=== PATIENT | male | born 1950 ===

== ENCOUNTER 2017-08-21 14:49 | Emergency (ER) | payer OTHER ==
[2017-08-21 14:58] VITALS: TEMP 97.5; BMI 25.7
--- NOTE | 2017-08-21 15:58 | C.PDOC ---
History Of Present Illness Patient presents to ED c/o interemittent dizziness described as room spinning around him for approx 2 weeks. He states symptoms worsen with movement of his head, and he denies prior episodes of similar symptoms. He denies current dizziness, but does admit that his blood sugar has also been elevated. He states he has been compliant with his insulin regimen. Patient denies visual changes, facial droop, slurred speech, extremity weakness, sensory changes, chest pain, palpitations, SOB. Patient also denies ear pain, mastoid pain, ear discharge. Time Seen by Provider: 08/21/17 15:54 Chief Complaint (Nursing): Dizziness/Lightheaded History Per: Patient History/Exam Limitations: no limitations Onset/Duration Of Symptoms: Days (2 weeks) Current Symptoms Are (Timing): Gone Activity At Onset Of Symptoms: Change In Head Position Associated Symptoms Preceding Syncopal Episode: No Predromal Symptoms (Sudden Onset) Seizure Or Post-ictal Symptoms: None Past Medical History Reviewed: Historical Data, Nursing Documentation, Vital Signs Vital Signs: Last Vital Signs Temp 97.5 F L 08/21/17 14:58 Pulse 55 L 08/21/17 18:12 Resp 16 08/21/17 18:12 BP 158/69 H 08/21/17 18:12 Pulse Ox 100 08/21/17 18:31 - Medical History PMH: Arthritis (knee), CAD, Cardia Arrhythmia, CHF, Diabetes, HTN, Hypercholesterolemia, Kidney Stones, Chronic Kidney Disease (RENAL INSUFFICIENCY ) Surgical History: Pacemaker Family History: States: No Known Family Hx - Social History Hx Alcohol Use: No (ocassional) Hx Substance Use: No - Immunization History Hx Tetanus Toxoid Vaccination: No Hx Influenza Vaccination: No Hx Pneumococcal Vaccination: No Review Of Systems Except As Marked, All Systems Reviewed And Found Negative. Constitutional: Negative for: Fever, Chills Cardiovascular: Negative for: Chest Pain, Palpitations Respiratory: Negative for: Cough, Shortness of Breath Gastrointestinal: Negative for: Nausea, Vomiting, Abdominal Pain, Diarrhea Genitourinary: Negative for: Dysuria, Hematuria Neurological: Positive for: Dizziness. Negative for: Weakness, Numbness, Incoordination, Headache Physical Exam - Physical Exam Appears: Well, Non-toxic, No Acute Distress Skin: Normal Color, Warm, Dry Eye(s): bilateral: Normal Inspection, PERRL (no nystagmus ), EOMI Ear(s): Bilateral: Normal (no mastoid TTP), Other (cerumen B/L, no discharge) Oral Mucosa: Moist Cardiovascular: Rhythm Regular Respiratory: Normal Breath Sounds, No Rales, No Rhonchi, No Wheezing Gastrointestinal/Abdominal: Normal Exam, Bowel Sounds, Soft, No Tenderness Extremity: Normal ROM Extremity: Bilateral: Atraumatic, Normal Color And Temperature, Normal ROM Neurological/Psych: Oriented x3, Normal Speech, Normal Cognition, Normal Cranial Nerves, No Cerebellar Signs, Normal Motor, Normal Sensation ED Course And Treatment - Laboratory Results Result Diagrams: 08/21/17 16:19 08/21/17 18:02 O2 Sat by Pulse Oximetry: 100 (RA) Pulse Ox Interpretation: Normal - CT Scan/US CT HEAD Other Rad Studies (CT/US): Read By Radiologist, Radiology Report Reviewed CT/US Interpretation: Accession No. : [id number]. Patient Name / ID : MARY RIVERA / [id number]. Exam Date : 08/21/2017 17:45:50 ( Approved ). Study Comment : Sex / Age : M / [id number]. Creator : Xena Camejo MD. Dictator : Xena Camejo MD. Crime Prevention Worker : Certified Green Building Engineer : Xena Camejo MD. Approver2 : Report Date : 08/21/2017 18:03:07. My Comment : . PROCEDURE: CT HEAD WITHOUT CONTRAST. HISTORY: DIZZINESS. COMPARISON: None available. TECHNIQUE: Axial computed tomography images were obtained through the head/ brain without intravenous contrast. Radiation dose: Total exam DLP = 909.95 mGy-cm. This CT exam was performed using one or more of the following dose reduction techniques: Automated exposure control, adjustment of the mA and/or kV according to patient size, and/or use of iterative reconstruction technique. FINDINGS: HEMORRHAGE: No intracranial hemorrhage. BRAIN: No mass effect or edema. No atrophy or chronic microvascular ischemic changes. VENTRICLES: Unremarkable. No hydrocephalus. CALVARIUM: Unremarkable. PARANASAL SINUSES: Unremarkable as visualized. No significant inflammatory changes. MASTOID AIR CELLS: There is complete opacification of the left mastoid and left middle ear consistent with otomastoiditis. OTHER FINDINGS: None. IMPRESSION: No evidence of acute intracranial hemorrhage intracranial collection mass effect or midline shift. Opacification of the left mastoid and middle ear consistent with otomastoiditis. Progress Note: Blood work, CT head, UA, EKG ordered and reviewed. Patient given IV NS bolus. Disposition Counseled Patient/Family Regarding: Studies Performed, Diagnosis, Need For Followup, Rx Given - Disposition Referrals: Gilmer Yang MD [Staff Provider] - Disposition: HOME/ ROUTINE Disposition Time: 19:00 Condition: STABLE Additional Instructions: SEGUIMIENTO CON ENT SPECIALIST DENTRO DE 1 SEMANA USE MEDICAMENTOS SEGN SEA NECESARIO PARA EL MAREO REGRESE AL CLAUDIA DE EMERGENCIA SI LOS SNTOMAS EMPEORAN Prescriptions: Meclizine [Meclizine*] 25 mg PO Q6 #30 tab Instructions: Benign Paroxysmal Positional Vertigo (ED) Forms: [facility] (Georgian) Print Language: SLOVAK - POA Present On Arrival: None - Clinical Impression Clinical Impression: Peripheral vertigo, Hyperglycemia, Chronic renal insufficiency
[2017-08-21] MEDS ORDERED: Sodium Chloride 0.9% 1,000 ML IV ONE (16:04)
[2017-08-21 16:23] LABS: BASO # 0.1 K/uL (0.0-0.2); BASO % 0.9 % (0.0-2.0); EOS # 0.1 K/uL (0.0-0.7); EOS % 0.7 % (0.0-4.0); HEMATOCRIT 32.7 % (35.0-51.0); LYMPH # 2.5 K/uL (1.0-4.3); LYMPH % 20.6 % (20.0-40.0); MEAN CELL VOLUME 81.4 fL (80.0-94.0); MEAN CORPUSCULAR HEMOGLOBIN 26.6 pg (27.0-31.0); MEAN CORPUSCULAR HGB CONC 32.6 g/dL (33.0-37.0); MEAN PLATELET VOLUME 9.3 fL (7.2-11.7); MONO # 0.7 K/uL (0.0-0.8); MONO % 5.9 % (0.0-10.0); RED CELL DISTRIBUTION WIDTH 13.8 % (11.5-14.5); WHITE BLOOD COUNT 12.3 K/uL (4.8-10.8)
[2017-08-21 16:36] LABS: ALB/GLOB RATIO 1.1 (1.0-2.1); BILIRUBIN,TOTAL 0.7 mg/dL (0.2-1.3); CALCIUM 7.7 mg/dl (8.6-10.4); POTASSIUM 6.1 mmol/L (3.6-5.2); TOTAL PROTEIN 7.6 g/dL (6.3-8.3)
--- NOTE | 2017-08-21 18:04 | CT ---
PROCEDURE: CT HEAD WITHOUT CONTRAST. HISTORY: DIZZINESS COMPARISON: None available. TECHNIQUE: Axial computed tomography images were obtained through the head/brain without intravenous contrast. Radiation dose: Total exam DLP = 909.95 mGy-cm. This CT exam was performed using one or more of the following dose reduction techniques: Automated exposure control, adjustment of the mA and/or kV according to patient size, and/or use of iterative reconstruction technique. FINDINGS: HEMORRHAGE: No intracranial hemorrhage. BRAIN: No mass effect or edema. No atrophy or chronic microvascular ischemic changes. VENTRICLES: Unremarkable. No hydrocephalus. CALVARIUM: Unremarkable. PARANASAL SINUSES: Unremarkable as visualized. No significant inflammatory changes. MASTOID AIR CELLS: There is complete opacification of the left mastoid and left middle ear consistent with otomastoiditis. OTHER FINDINGS: None. IMPRESSION: No evidence of acute intracranial hemorrhage intracranial collection mass effect or midline shift. Opacification of the left mastoid and middle ear consistent with otomastoiditis.
[2017-08-21 18:27] LABS: CALCIUM 8.1 mg/dl (8.6-10.4); POTASSIUM 5.6 mmol/L (3.6-5.2)
[2017-08-21 19:01] VITALS: BP 159/71; PULSE 58; RESP 18; O2SAT 98
--- NOTE | 2017-08-24 09:03 | CARD ---
APPROVED REPORT EKG Measurement Heart [id number] <Conclusion> Sinus bradycardia Right bundle branch block Left anterior fascicular block Bifascicular block T wave abnormality, consider lateral ischemia Abnormal ECG
== END 2017-08-21 19:08 | disposition home or self-care (01) ==
LOC: C.ER 14:49
DX: H81.399 Other peripheral vertigo, unspecified ear (principal); E11.65 Type 2 diabetes mellitus with hyperglycemia; Z79.4 Long term (current) use of insulin; N18.9 Chronic kidney disease, unspecified
CPT/HCPCS: 36415; 70450; 80048; 80053; 85025; 93005; 96360; 99285; J7040

== ENCOUNTER 2017-10-24 11:28 | Inpatient (IN) | payer MEDICAID, OTHER ==
[2017-10-24 11:29] VITALS: BMI 25.7
[2017-10-24] MEDS ORDERED: Sodium Chloride 0.9% 500 ML IV ONE (12:28)
[2017-10-24 12:46] LABS: BASO % 0.4 % (0.0-2.0); EOS # 0.1 K/uL (0.0-0.7); EOS % 0.8 % (0.0-4.0); HEMOGLOBIN 10.4 g/dL (12.0-18.0); LYMPH # 2.1 K/uL (1.0-4.3); LYMPH % 22.3 % (20.0-40.0); MEAN CELL VOLUME 82.8 fL (80.0-94.0); MEAN CORPUSCULAR HEMOGLOBIN 27.7 pg (27.0-31.0); MEAN CORPUSCULAR HGB CONC 33.5 g/dL (33.0-37.0); MEAN PLATELET VOLUME 11.2 fL (7.2-11.7); MONO # 0.7 K/uL (0.0-0.8); MONO % 7.5 % (0.0-10.0); NEUT # 6.5 K/uL (1.8-7.0); RBC 3.74 Mil/uL (4.40-5.90); RED CELL DISTRIBUTION WIDTH 13.5 % (11.5-14.5); WHITE BLOOD COUNT 9.4 K/uL (4.8-10.8)
--- NOTE | 2017-10-24 12:50 | C.PDOC ---
History Of Present Illness 67 year old male, with PMHx of diabetes, presents to ED for evaluation of increased thirst, increased fluid intake, and decreased appetite. Notes that he is compliant with his insulin medication. Denies n/v/d, chest pain, or shortness of breath. Time Seen by Provider: 10/24/17 12:00 Chief Complaint (Nursing): Medical Clearance History Per: Patient History/Exam Limitations: no limitations Onset/Duration Of Symptoms: Gradual Current Symptoms Are (Timing): Still Present Severity: None Pain Scale Rating Of: 0 Recent travel outside of the [place]: No Additional History Per: Patient Past Medical History Reviewed: Historical Data, Nursing Documentation, Vital Signs Vital Signs: Last Vital Signs Temp 98.0 F 10/26/17 16:44 Pulse 76 10/26/17 16:44 Resp 20 10/26/17 16:44 BP 155/80 H 10/26/17 16:44 Pulse Ox 98 10/26/17 16:44 - Medical History PMH: Arthritis (knee), CAD, Cardia Arrhythmia, CHF, Diabetes, HTN, Hypercholesterolemia, Kidney Stones, Chronic Kidney Disease (RENAL INSUFFICIENCY ) Surgical History: Pacemaker Family History: States: Unknown Family Hx - Social History Hx Alcohol Use: No (ocassional) Hx Substance Use: No - Immunization History Hx Tetanus Toxoid Vaccination: No Hx Influenza Vaccination: No Hx Pneumococcal Vaccination: No Review Of Systems Except As Marked, All Systems Reviewed And Found Negative. Constitutional: Positive for: Other (polydipsia, polyphagia). Negative for: Fever, Chills Cardiovascular: Negative for: Chest Pain, Palpitations Respiratory: Negative for: Cough, Shortness of Breath Gastrointestinal: Negative for: Nausea, Vomiting, Abdominal Pain, Diarrhea Neurological: Negative for: Headache, Dizziness Physical Exam - Physical Exam Appears: Non-toxic, No Acute Distress Skin: Normal Color, Warm, Dry Head: Atraumatic, Normacephalic Eye(s): bilateral: Normal Inspection Oral Mucosa: Moist Neck: Supple Cardiovascular: Rhythm Regular, No Murmur Respiratory: Normal Breath Sounds, No Rales, No Rhonchi, No Wheezing Gastrointestinal/Abdominal: Soft, No Tenderness Extremity: Normal ROM, No Deformity Neurological/Psych: Oriented x3, Normal Speech ED Course And Treatment - Laboratory Results Result Diagrams: 10/26/17 06:25 10/26/17 06:23 ECG: Interpreted By Me, Viewed By Me ECG Rhythm: Sinus Rhythm ECG Interpretation: No Acute Changes Interpretation Of ECG: RBBB. Left anterior fascicular block. Non-specific T wave changes. Rate From EC (bpm) O2 Sat by Pulse Oximetry: 99 (RA) Pulse Ox Interpretation: Normal Critical Care Time - Critical Care Note Total Time (in mins): 45 Documented critical care: time excludes all time spent performing seperately billable procedures. Medical Decision Making Medical Decision Making: Plan: Blood work Urinalysis EKG CXR IV fluids Reassess Assessment: Hyperglycemia Pt will be admitted under hospitalist, Dr. Eileen Stewart's service, consult with ICU, Dr. Meeta Stewart. Disposition Discussed With DrVasu: Alec Stewart Counseled Patient/Family Regarding: Studies Performed, Diagnosis - Disposition Disposition: HOSPITALIZED Disposition Time: 14:18 Condition: FAIR - Clinical Impression Clinical Impression: Hyperosmolality due to uncontrolled type 1 diabetes mellitus - Scribe Statement The provider has reviewed the documentation as recorded by the Scribkin Stewart All medical record entries made by the Scribkin were at my direction and personally dictated by me. I have reviewed the chart and agree that the record accurately reflects my personal performance of the history, physical exam, medical decision making, and the department course for this patient. I have also personally directed, reviewed, and agree with the discharge instructions and disposition.
[2017-10-24 13:09] LABS: URINE BILIRUBIN NEGATIVE (NEGATIVE); URINE BLOOD 1+ (NEGATIVE); URINE CLARITY Clear (Clear); URINE COLOR Straw (YELLOW); URINE GLUCOSE (UA) 3+ mg/dL (Normal); URINE LEUKOCYTE ESTERASE NEG Leu/uL (Negative); URINE NITRATE NEGATIVE (NEGATIVE); URINE PROTEIN NEGATIVE (NEGATIVE); URINE UROBILINOGEN NORMAL mg/dL (0.2-1.0)
[2017-10-24 13:16] LABS: SQUAMOUS EPITHIAL < 1 /hpf (0-5)
[2017-10-24 13:31] LABS: GFR AFRICAN-AMERICAN 26; GFR NON-AFRICAN AMERICAN 21
[2017-10-24 13:34] LABS: AST/SGOT 9 U/L (17-59)
--- NOTE | 2017-10-24 13:42 | RAD ---
Chest x-ray single frontal view History: Chest. Comparison: 10/12/2016 Findings: Mild venous congestion. Right hilar prominence. Cardiomegaly. Tortuous aorta. Degenerative changes in the spine and shoulders. Impression: Mild venous congestion. Right hilar prominence. Cardiomegaly.
[2017-10-24 13:51] LABS: ALBUMIN 3.7 g/dL (3.5-5.0); ALT/SGPT 20 U/L (21-72); BLOOD UREA NITROGEN 53 mg/dL (9-20); CALCIUM 8.3 mg/dl (8.6-10.4); LIPASE 319 U/L (23-300)
[2017-10-24] MEDS ORDERED: Sodium Chloride 0.9% 1,000 ML IV ONE ×4 (14:00→15:42)
[2017-10-24] MEDS ORDERED: (Novolin R) Insulin Human Regular 100 units/ml vial IV STA (14:01)
[2017-10-24] MEDS ORDERED: Insulin Human Regular 100 UNIT in Sodium Chloride 0.9% 99 ML IV SCH ×2 (14:15→16:30)
[2017-10-24] MEDS ORDERED: (Novolin R) Insulin Human Regular 100 units/ml vial ONE ×2 (14:30→16:06)
--- NOTE | 2017-10-24 14:33 | CP.PCM.HP ---
<Chele Richard - Last Filed: 10/24/17 17:36> History of Present Illness - History of Present Illness History of Present Illness: H&P CC: Excessive thirst, decreased appetite HPI: Patient is a 66 year old male, with PMHx of DM, HTN, renal insufficiency, and arthritis, who presents to [facility] for excessive thirst, and decreased appetite. Patient reports for the last few days he has been without testing strips for his glucometer and he has not been checking his sugars. He states he has become excessively thirsty, urinating more frequently, and noticed a decreased appetite. He states he has becca these symptoms before when his sugars have been high and knew it was time to come to the ED. He states he is still taking his insulin (20 units of Novolin in AM and PM) despite being unable to check his sugars. He denies chest pain, palpitations, SOB, abdominal pain, N/V. FHx: Father - DM; Mom - DM & Heart disease SHx: Tobacco: 30yrs x 1/2 PPD = 15 pack years; Alcohol: 1-2 beers "occasionally " 2-3 x per week; denies narcotic drug use; works at [employer] in [place] PMHx: Diabetes (diagnosed in 1999: has not check BG in months due to glucometer being broken); HTN (10+ yrs; takes Zestril 5mg PO daily and Norvasc 5mg PO Daily ); Osteoarthritis PShx: Lipoma removal (back of arm) Allergies: denies Present on Admission - Present on Admission Any Indicators Present on Admission: No History of Uncontrolled Diabetes: Yes Review of Systems - Constitutional Constitutional: absent: Chills, Fever - EENT Eyes: absent: Blurred Vision, Change in Vision, Spots in Vision Nose/Mouth/Throat: absent: Nasal Discharge - Cardiovascular Cardiovascular: absent: Chest Pain, Dyspnea, Leg Ulcers - Respiratory Respiratory: absent: Cough, Dyspnea, Chest Congestion - Gastrointestinal Gastrointestinal: absent: Abdominal Pain, Nausea, Vomiting - Genitourinary Genitourinary: Urinary Frequency. absent: Difficulty Urinating, Dysuria - Musculoskeletal Musculoskeletal: absent: Back Pain, Numbness, Tingling - Integumentary Integumentary: Dry Skin. absent: Wounds - Neurological Neurological: absent: Tingling, Weakness - Psychiatric Psychiatric: absent: Anxiety, Depression - Endocrine Endocrine: Polyphagia, Polyuria. absent: Fatigue, Palpitations Past Patient History - Infectious Disease Hx of Infectious Diseases: None - Past Medical History & Family History Past Medical History?: Yes - Past Social History Smoking Status: Light Smoker < 10 Cigarettes Daily - CARDIAC Hx Cardia Arrhythmia: Yes Hx Congestive Heart Failure: Yes Hx Hypercholesterolemia: Yes Hx Hypertension: Yes Hx Pacemaker: Yes - PULMONARY Hx Respiratory Disorders: Yes (SOB) - NEUROLOGICAL Hx Neurological Disorder: No - HEENT Hx HEENT Problems: Yes Hx Cataracts: Yes - RENAL Hx Chronic Kidney Disease: Yes (RENAL INSUFFICIENCY) Hx Kidney Stones: Yes - ENDOCRINE/METABOLIC Hx Endocrine Disorders: Yes Hx Diabetes Mellitus Type 2: Yes - HEMATOLOGICAL/ONCOLOGICAL Hx Blood Disorders: Yes Hx Shingles: Yes - INTEGUMENTARY Hx Dermatological Problems: No - MUSCULOSKELETAL/RHEUMATOLOGICAL Hx Arthritis: Yes (knee) - GASTROINTESTINAL Hx Gastrointestinal Disorders: Yes Hx Gastroesophageal Reflux: Yes - GENITOURINARY/GYNECOLOGICAL Hx Genitourinary Disorders: No - PSYCHIATRIC Hx Substance Use: No - SURGICAL HISTORY Hx Surgeries: Yes Other/Comment: REMOVAL LIPOMAS BACK ARM LOCAL ONLY - ANESTHESIA Hx Anesthesia: Yes Hx Anesthesia Reactions: No Hx Malignant Hyperthermia: No Meds Allergies/Adverse Reactions: Allergies Allergy/AdvReac Type Severity Reaction Status Date / Time No Known Allergies Allergy Verified 10/24/17 11:39 Physical Exam - Constitutional Appears: Non-toxic, No Acute Distress - Head Exam Head Exam: ATRAUMATIC, NORMAL INSPECTION - Eye Exam Eye Exam: EOMI, Normal appearance Pupil Exam: PERRL - ENT Exam ENT Exam: Mucous Membranes Dry, Normal Exam - Respiratory Exam Respiratory Exam: Clear to Auscultation Bilateral, NORMAL BREATHING PATTERN - Cardiovascular Exam Cardiovascular Exam: REGULAR RHYTHM, +S1, +S2, Systolic Murmur - GI/Abdominal Exam GI & Abdominal Exam: Normal Bowel Sounds, Soft. absent: Tenderness - Extremities Exam Extremities exam: Positive for: normal inspection. Negative for: pedal edema - Back Exam Back exam: absent: CVA tenderness (L), CVA tenderness (R) - Neurological Exam Neurological exam: Alert, Oriented x3 - Psychiatric Exam Psychiatric exam: Normal Affect, Normal Mood - Skin Skin Exam: Dry, Normal Color, Warm Results - Vital Signs Recent Vital Signs: Last Vital Signs Temp 97.6 F 10/24/17 11:35 Pulse 95 H 10/24/17 11:35 Resp 18 01/27/18 11:35 BP 169/102 H 10/24/17 11:35 Pulse Ox 99 10/24/17 14:25 - Labs Result Diagrams: 10/24/17 12:43 10/24/17 12:43 Labs: Laboratory Results - last 24 hr 10/24/17 10/24/17 10/24/17 11:57 12:43 12:43 WBC 9.4 RBC 3.74 L Hgb 10.4 L Hct 31.0 L MCV 82.8 MCH 27.7 MCHC 33.5 RDW 13.5 Plt Count 152 MPV 11.2 Neut % (Auto) 69.0 Lymph % (Auto) 22.3 [place] % (Auto) 7.5 Eos % (Auto) 0.8 Baso % (Auto) 0.4 Neut # 6.5 Lymph # 2.1 [place] # 0.7 Eos # 0.1 Baso # 0.0 Sodium 110 L* Potassium 5.2 Chloride 77 L D Carbon Dioxide 20 L Anion Gap 17 BUN 53 H Creatinine 3.0 H Est GFR ( Amer) 26 Est GFR (Non-Af Amer) 21 POC Glucose (mg/dL) > 500 H* Random Glucose 1026 H* Calcium 8.3 L Total Bilirubin 0.8 AST 9 L D ALT 20 L Alkaline Phosphatase 167 H D Troponin I < 0.0120 Total Protein 7.3 Albumin 3.7 Globulin 3.6 Albumin/Globulin Ratio 1.0 Lipase 319 H Urine Color Urine Clarity Urine pH Ur Specific [place] Urine Protein Urine Glucose (UA) Urine Ketones Urine Blood Urine Nitrate Urine Bilirubin Urine Urobilinogen Ur Leukocyte Esterase Urine WBC (Auto) Urine RBC (Auto) Ur Squamous Epith Cells 10/24/17 13:01 WBC RBC Hgb Hct MCV MCH MCHC RDW Plt Count MPV Neut % (Auto) Lymph % (Auto) [place] % (Auto) Eos % (Auto) Baso % (Auto) Neut # Lymph # [place] # Eos # Baso # Sodium Potassium Chloride Carbon Dioxide Anion Gap BUN Creatinine Est GFR ( Amer) Est GFR (Non-Af Amer) POC Glucose (mg/dL) Random Glucose Calcium Total Bilirubin AST ALT Alkaline Phosphatase Troponin I Total Protein Albumin Globulin Albumin/Globulin Ratio Lipase Urine Color Straw Urine Clarity Clear Urine pH 6.0 Ur Specific [place] 1.014 Urine Protein Negative Urine Glucose (UA) 3+ H Urine Ketones Negative Urine Blood 1+ H Urine Nitrate Negative Urine Bilirubin Negative Urine Urobilinogen Normal Ur Leukocyte Esterase Neg Urine WBC (Auto) 2 Urine RBC (Auto) 4 H Ur Squamous Epith Cells < 1 Assessment & Plan - Assessment and Plan (Free Text) Plan: Hyperosmolar hyperglycemic non-ketotic syndrome Admit to regular, transfer to ICU Initial sugars> 1000 UA: no ketones, Anion Gap = 18 Trop negative x 1 Lipase 319 (mild elevation) UA: 3+ glucose, 1+ blood ICU consult, Dr. Stewart - will accept pt when bed available Insulin Drip Lantus 20 units STAT in ED Novolin R 8 units IV NS x 2 liters NS @ 150cc/hr f/u BNP, A1C, lipid panel, Urine Osm, Serum Osm, procalcitonin Hyponatremia Corrected sodium (admission) 124 Volume depletion NS x 2 liters NS @ 150cc/hr CKD Chronic (baseline Cr ~3.8) Admission Cr 3.0; GFR 26 NS x 2 liters NS @ 150cc/hr Will avoid nephrotoxic drugs HOLD home Zestril 5 mg PO Daily CHF (systolic) ECHO (09/2016): EF 28%, Tricuspid regurgitation, moderate pulm HTN Pt volume depleted, is being aggressively rehydrated, will monitor for overload HOLD home Zestril 5 mg PO Daily Hematuria UA (10/24/17): 1+ blood Monitor, will repeat UA later in course Prophylaxis SCDs Lovenox GI ppx not indicated at this time Chele Richard PGY-[address] Oconnor, and Dr. Stewart (ICU attending) <Wilber Oconnor H - Last Filed: 10/24/17 18:03> Results - Vital Signs Recent Vital Signs: Last Vital Signs Temp 97.6 F 10/24/17 16:53 Pulse 72 10/24/17 16:53 Resp 16 10/24/17 16:53 BP 146/79 10/24/17 16:53 Pulse Ox 100 10/24/17 16:53 - Labs Result Diagrams: 10/24/17 12:43 10/24/17 12:43 Labs: Laboratory Results - last 24 hr 10/24/17 10/24/17 10/24/17 11:57 12:43 12:43 WBC 9.4 RBC 3.74 L Hgb 10.4 L Hct 31.0 L MCV 82.8 MCH 27.7 MCHC 33.5 RDW 13.5 Plt Count 152 MPV 11.2 Neut % (Auto) 69.0 Lymph % (Auto) 22.3 [place] % (Auto) 7.5 Eos % (Auto) 0.8 Baso % (Auto) 0.4 Neut # 6.5 Lymph # 2.1 [place] # 0.7 Eos # 0.1 Baso # 0.0 Sodium 110 L* Potassium 5.2 Chloride 77 L D Carbon Dioxide 20 L Anion Gap 17 BUN 53 H Creatinine 3.0 H Est GFR ( Amer) 26 Est GFR (Non-Af Amer) 21 POC Glucose (mg/dL) > 500 H* Random Glucose 1026 H* Serum Osmolality Calcium 8.3 L Total Bilirubin 0.8 AST 9 L D ALT 20 L Alkaline Phosphatase 167 H D Troponin I < 0.0120 Total Protein 7.3 Albumin 3.7 Globulin 3.6 Albumin/Globulin Ratio 1.0 Lipase 319 H Urine Color Urine Clarity Urine pH Ur Specific [place] Urine Protein Urine Glucose (UA) Urine Ketones Urine Blood Urine Nitrate Urine Bilirubin Urine Urobilinogen Ur Leukocyte Esterase Urine WBC (Auto) Urine RBC (Auto) Ur Squamous Epith Cells Urine Osmolality Serum Ketones 10/24/17 10/24/17 10/24/17 13:01 15:37 15:37 WBC RBC Hgb Hct MCV MCH MCHC RDW Plt Count MPV Neut % (Auto) Lymph % (Auto) [place] % (Auto) Eos % (Auto) Baso % (Auto) Neut # Lymph # [place] # Eos # Baso # Sodium Potassium Chloride Carbon Dioxide Anion Gap BUN Creatinine Est GFR ( Amer) Est GFR (Non-Af Amer) POC Glucose (mg/dL) Random Glucose Serum Osmolality 312 H Calcium Total Bilirubin AST ALT Alkaline Phosphatase Troponin I Total Protein Albumin Globulin Albumin/Globulin Ratio Lipase Urine Color Straw Urine Clarity Clear Urine pH 6.0 Ur Specific [place] 1.014 Urine Protein Negative Urine Glucose (UA) 3+ H Urine Ketones Negative Urine Blood 1+ H Urine Nitrate Negative Urine Bilirubin Negative Urine Urobilinogen Normal Ur Leukocyte Esterase Neg Urine WBC (Auto) 2 Urine RBC (Auto) 4 H Ur Squamous Epith Cells < 1 Urine Osmolality Serum Ketones Negative 10/24/17 10/24/17 10/24/17 15:38 16:40 17:27 WBC RBC Hgb Hct MCV MCH MCHC RDW Plt Count MPV Neut % (Auto) Lymph % (Auto) [place] % (Auto) Eos % (Auto) Baso % (Auto) Neut # Lymph # [place] # Eos # Baso # Sodium Potassium Chloride Carbon Dioxide Anion Gap BUN Creatinine Est GFR ( Amer) Est GFR (Non-Af Amer) POC Glucose (mg/dL) > 500 H* 252 H Random Glucose Serum Osmolality Calcium Total Bilirubin AST ALT Alkaline Phosphatase Troponin I Total Protein Albumin Globulin Albumin/Globulin Ratio Lipase Urine Color Urine Clarity Urine pH Ur Specific [place] Urine Protein Urine Glucose (UA) Urine Ketones Urine Blood Urine Nitrate Urine Bilirubin Urine Urobilinogen Ur Leukocyte Esterase Urine WBC (Auto) Urine RBC (Auto) Ur Squamous Epith Cells Urine Osmolality 338 Serum Ketones Attending/Attestation - Attestation I have personally seen and examined this patient.: Yes I have fully participated in the care of the patient.: Yes I have reviewed all pertinent clinical information: Yes Notes (Text): 10/24/17 17:53 Medical attending: Patient was seen and examined by me with the bilingual medical assistant. Agree with the above note by the resident Family member present as well and patient was ok with this. The patient was not in any acute distress when we saw him. He was alert and orientated x 3. Answering questions appropriately. We had the help of a spinning machine tender computer service. As mentioned above the patient reported he has been taking his insulin however has ran out of test strips for some time now and therefore was not aware his sugars were thus high. He was not acidotic, serum bicarb was stable, no ketones in urine, no ketones in serum. The blood pressure and HR were also ok as well. The Na is low a reflection of the very high glucose, calculated correction makes it about 123-124 area. In the ER recived IVF bolus and 8 units of IV insulin. He was moved to ICU for further monitoring, hopefully he can come out soon. Wilber Oconnor
[2017-10-24] MEDS ORDERED: (Lantus) Insulin Glargine, Recombinant SC STA (14:35)
[2017-10-24] MEDS ORDERED: (Novolog) Insulin Aspart, Recombinant 100 u/ml 10 ml vial SC SCH (15:00)
[2017-10-24] MEDS ORDERED: (Lantus) Insulin Glargine, Recombinant SC ONE (15:05)
--- NOTE | 2017-10-24 15:11 | CP.PCM.CON ---
History of Present Illness - History of Present Illness History of Present Illness: 67 y/o male with pmx of DM, HTN with non-functional glucometer presents to [facility] with c/o increased thirst and increased urination, Patient denies any chest pain. Patient was noted to hae high blood sugar. Patient denies any chest pain, denies any abdominal pain, denies any blurry vision Past Patient History - Infectious Disease Hx of Infectious Diseases: None - Past Medical History & Family History Past Medical History?: Yes - Past Social History Smoking Status: Light Smoker < 10 Cigarettes Daily - CARDIAC Hx Cardia Arrhythmia: Yes Hx Congestive Heart Failure: Yes Hx Hypercholesterolemia: Yes Hx Hypertension: Yes Hx Pacemaker: Yes - PULMONARY Hx Respiratory Disorders: Yes (SOB) - NEUROLOGICAL Hx Neurological Disorder: No - HEENT Hx HEENT Problems: Yes Hx Cataracts: Yes - RENAL Hx Chronic Kidney Disease: Yes (RENAL INSUFFICIENCY) Hx Kidney Stones: Yes - ENDOCRINE/METABOLIC Hx Endocrine Disorders: Yes Hx Diabetes Mellitus Type 2: Yes - HEMATOLOGICAL/ONCOLOGICAL Hx Blood Disorders: Yes Hx Shingles: Yes - INTEGUMENTARY Hx Dermatological Problems: No - MUSCULOSKELETAL/RHEUMATOLOGICAL Hx Arthritis: Yes (knee) - GASTROINTESTINAL Hx Gastrointestinal Disorders: Yes Hx Gastroesophageal Reflux: Yes - GENITOURINARY/GYNECOLOGICAL Hx Genitourinary Disorders: No - PSYCHIATRIC Hx Substance Use: No - SURGICAL HISTORY Hx Surgeries: Yes Other/Comment: REMOVAL LIPOMAS BACK ARM LOCAL ONLY - ANESTHESIA Hx Anesthesia: Yes Hx Anesthesia Reactions: No Hx Malignant Hyperthermia: No Meds Allergies/Adverse Reactions: Allergies Allergy/AdvReac Type Severity Reaction Status Date / Time No Known Allergies Allergy Verified 10/24/17 11:39 - Medications Medications: Current Medications Sodium Chloride (Sodium Chloride 0.9%) 1,000 mls @ 150 mls/hr IV .Q6H40M TENZIN Sodium Chloride (Sodium Chloride 0.9%) 1,000 mls @ 1,000 mls/hr IV .Q1H ONE Stop: 10/24/17 15:58 Insulin Aspart (Novolog) 0 unit SC Q4H ETNZIN PRN Reason: Protocol Physical Exam - Constitutional Appears: Non-toxic - Head Exam Head Exam: ATRAUMATIC, NORMAL INSPECTION, NORMOCEPHALIC - Eye Exam Eye Exam: EOMI - ENT Exam ENT Exam: Mucous Membranes Dry - Respiratory Exam Respiratory Exam: Clear to Auscultation Bilateral, NORMAL BREATHING PATTERN - Cardiovascular Exam Cardiovascular Exam: REGULAR RHYTHM, +S1, +S2, +S4, Systolic Murmur - GI/Abdominal Exam GI & Abdominal Exam: Normal Bowel Sounds - Neurological Exam Neurological exam: CN II-XII Intact, Normal Gait, Oriented x3 Results - Vital Signs Recent Vital Signs: Last Vital Signs Temp 97.9 F 10/24/17 14:37 Pulse 76 10/24/17 14:37 Resp 20 10/24/17 14:37 BP 146/71 10/24/17 14:37 Pulse Ox 100 10/24/17 14:37 - Labs Result Diagrams: 10/24/17 12:43 10/24/17 12:43 Labs: Laboratory Results - last 24 hr 10/24/17 10/24/17 10/24/17 11:57 12:43 12:43 WBC 9.4 RBC 3.74 L Hgb 10.4 L Hct 31.0 L MCV 82.8 MCH 27.7 MCHC 33.5 RDW 13.5 Plt Count 152 MPV 11.2 Neut % (Auto) 69.0 Lymph % (Auto) 22.3 [place] % (Auto) 7.5 Eos % (Auto) 0.8 Baso % (Auto) 0.4 Neut # 6.5 Lymph # 2.1 [place] # 0.7 Eos # 0.1 Baso # 0.0 Sodium 110 L* Potassium 5.2 Chloride 77 L D Carbon Dioxide 20 L Anion Gap 17 BUN 53 H Creatinine 3.0 H Est GFR ( Amer) 26 Est GFR (Non-Af Amer) 21 POC Glucose (mg/dL) > 500 H* Random Glucose 1026 H* Calcium 8.3 L Total Bilirubin 0.8 AST 9 L D ALT 20 L Alkaline Phosphatase 167 H D Troponin I < 0.0120 Total Protein 7.3 Albumin 3.7 Globulin 3.6 Albumin/Globulin Ratio 1.0 Lipase 319 H Urine Color Urine Clarity Urine pH Ur Specific [place] Urine Protein Urine Glucose (UA) Urine Ketones Urine Blood Urine Nitrate Urine Bilirubin Urine Urobilinogen Ur Leukocyte Esterase Urine WBC (Auto) Urine RBC (Auto) Ur Squamous Epith Cells 10/24/17 13:01 WBC RBC Hgb Hct MCV MCH MCHC RDW Plt Count MPV Neut % (Auto) Lymph % (Auto) [place] % (Auto) Eos % (Auto) Baso % (Auto) Neut # Lymph # [place] # Eos # Baso # Sodium Potassium Chloride Carbon Dioxide Anion Gap BUN Creatinine Est GFR ( Amer) Est GFR (Non-Af Amer) POC Glucose (mg/dL) Random Glucose Calcium Total Bilirubin AST ALT Alkaline Phosphatase Troponin I Total Protein Albumin Globulin Albumin/Globulin Ratio Lipase Urine Color Straw Urine Clarity Clear Urine pH 6.0 Ur Specific [place] 1.014 Urine Protein Negative Urine Glucose (UA) 3+ H Urine Ketones Negative Urine Blood 1+ H Urine Nitrate Negative Urine Bilirubin Negative Urine Urobilinogen Normal Ur Leukocyte Esterase Neg Urine WBC (Auto) 2 Urine RBC (Auto) 4 H Ur Squamous Epith Cells < 1 Assessment & Plan - Assessment and Plan (Free Text) Plan: HyperOmolar non-ketotic Diabetes (HONK): Patient remains realtively dehydrated, will hydrate patient with 3 liters of NS and restart patient's daily home dosage of insulin, patient takes 15 units of 70/30 in AM and 12 units of 7-/30 at night total daily dosage of about 28 units. -lantus 20 units now and then ISS Aspart q4hrs -check and replace all electrolytes -Patient has no ketosis and has no acidosis. -continue insulin and IV NS -CKD: chronic, stage III, avoid nephrotoxic drugs -continue dvt/pud ppx -Attempted to normalize blood sugar in ER, however still high, will admit to short time in ICU - Date & Time Date: 10/24/17 Time: 16:20
[2017-10-24] MEDS ORDERED: (Novolin R) Insulin Human Regular 100 units/ml vial IV ONE (15:41)
[2017-10-24] MEDS ORDERED: Sodium Chloride 0.9% 1,000 ML ONE (16:06)
[2017-10-24] MEDS ORDERED: Insulin Human Regular 100 UNIT in Sodium Chloride 0.9% 99 ML SC SCH (16:30)
[2017-10-24] MEDS: Sodium Chloride 0.9% 1,000 ML IV SCH (17:18)
[2017-10-24 18:08] LABS: ALB/GLOB RATIO 0.9 (1.0-2.1); ALBUMIN 3.2 g/dL (3.5-5.0); ALT/SGPT 16 U/L (21-72); AST/SGOT 15 U/L (17-59); B-TYPE NATRIURETIC PEPTIDE 384 pg/mL (0-900); BLOOD UREA NITROGEN 48 mg/dL (9-20); CALCIUM 7.9 mg/dl (8.6-10.4); GFR AFRICAN-AMERICAN 28; GFR NON-AFRICAN AMERICAN 23; MAGNESIUM 1.6 mg/dL (1.6-2.3)
[2017-10-24 21:47] LABS: ALB/GLOB RATIO 0.9 (1.0-2.1); ALBUMIN 2.9 g/dL (3.5-5.0); ALT/SGPT 18 U/L (21-72); AST/SGOT 13 U/L (17-59); BLOOD UREA NITROGEN 42 mg/dL (9-20); GFR AFRICAN-AMERICAN 32; GFR NON-AFRICAN AMERICAN 26; MAGNESIUM 1.5 mg/dL (1.6-2.3)
[2017-10-25] MEDS: Sodium Chloride 0.9% 1,000 ML IV SCH ×3 (04:29→06:17)
[2017-10-25 05:28] LABS: VENOUS BLOOD GAS BASE EXCESS -5.9 mmol/L (0.0-2.0); VENOUS BLOOD GAS PCO2 41 mmHg (40-60); VENOUS BLOOD GAS PO2 41 mm/Hg (30-55)
[2017-10-25 06:40] LABS: BASO % 0.2 % (0.0-2.0); EOS # 0.2 K/uL (0.0-0.7); EOS % 1.4 % (0.0-4.0); HEMOGLOBIN 8.7 g/dL (12.0-18.0); LYMPH # 2.6 K/uL (1.0-4.3); MEAN CELL VOLUME 78.9 fL (80.0-94.0); MEAN CORPUSCULAR HEMOGLOBIN 26.9 pg (27.0-31.0); MEAN CORPUSCULAR HGB CONC 34.2 g/dL (33.0-37.0); MEAN PLATELET VOLUME 10.5 fL (7.2-11.7); MONO # 0.7 K/uL (0.0-0.8); MONO % 6.7 % (0.0-10.0); NEUT # 7.3 K/uL (1.8-7.0); NEUT % 67.7 % (50.0-75.0); RBC 3.24 Mil/uL (4.40-5.90); RED CELL DISTRIBUTION WIDTH 13.5 % (11.5-14.5); WHITE BLOOD COUNT 10.8 K/uL (4.8-10.8)
[2017-10-25 06:48] LABS: ALB/GLOB RATIO 0.9 (1.0-2.1); ALBUMIN 2.8 g/dL (3.5-5.0); ALT/SGPT 21 U/L (21-72); AST/SGOT 12 U/L (17-59); BLOOD UREA NITROGEN 38 mg/dL (9-20); CALCIUM 7.8 mg/dl (8.6-10.4); GFR AFRICAN-AMERICAN 33; GFR NON-AFRICAN AMERICAN 27; MAGNESIUM 1.5 mg/dL (1.6-2.3)
--- NOTE | 2017-10-25 08:38 | CP.PCM.PN ---
Subjective - Date & Time of Evaluation Date of Evaluation: 10/25/17 Time of Evaluation: 08:15 - Subjective Subjective: Patient was seen and examined by me We will need a medical center director later, however I was able to communicate with him with my basic Croatian. He did well overnight. He reported feeling much less fatigue, less urination. Denied chest pain, denied abdominal pain, denied headache, denied fevers/chills, denied feeling dizzy. No acute evernts overnight. The recent accucheks were 95, 247, 237. His bicarb is ok, no ketones. I put in order to move patient out of ICU Objective - Vital Signs/Intake and Output Vital Signs (last 24 hours): Temp Pulse Resp BP Pulse Ox 98 F 62 17 144/69 96 10/25/17 04:00 10/25/17 07:07 10/25/17 07:07 10/25/17 07:07 10/25/17 07:07 Intake and Output: 10/25/17 10/25/17 06:59 18:59 Intake Total 1871.8 150 Output Total 1200 Balance 671.8 150 - Medications Medications: Current Medications Enoxaparin Sodium (Lovenox) 30 mg SC DAILY [facility] Sodium Chloride (Sodium Chloride 0.9%) 1,000 mls @ 150 mls/hr IV .Q6H40M [facility] Last Admin: 10/25/17 06:17 Dose: 150 mls/hr Insulin Glargine (Lantus) 15 unit SC QPM TENZIN Insulin Human Regular (Novolin R) 0 unit SC ACHS TENZIN PRN Reason: Protocol Lisinopril (Zestril) 5 mg PO DAILY [facility] - Labs Labs: 10/25/17 06:23 10/25/17 06:24 Assessment and Plan - Assessment and Plan (Free Text) Assessment: Plan: Hyperosmolar hyperglycemic non-ketotic syndrome 10/25: Patient is doing well. No ketones, overnight was on insulin ggt, IVF. He is tolerating PO diet Added on SSI - R, statin, MIRELA-I and ASA. Pending a HgbA1c Hyponatremia 10/25: Improved now. Mental status stable Tolerating PO diet CKD 10/25: Continue to monitor. Chronic (baseline Cr ~3.8) Admission Cr 3.0; GFR 26 CHF (systolic) 1/28: Will check another CXRAY. On admission he looked dry. Has recived a lot of fluid. ECHO (09/2016): EF 28%, Tricuspid regurgitation, moderate pulm HTN Pt volume depleted, is being aggressively rehydrated, will monitor for overload HOLD home Zestril 5 mg PO Daily Hematuria UA (10/24/17): 1+ blood Monitor, will repeat UA later in course Prophylaxis SCDs Lovenox GI ppx not indicated at this time
[2017-10-25] MEDS: Enoxaparin 30 mg Syringe SC SCH (10:23)
[2017-10-25] MEDS: (Novolin R) Insulin Human Regular 100 units/ml vial SC SCH ×3 (12:18→22:22)
[2017-10-25] MEDS: (Lantus) Insulin Glargine, Recombinant SC SCH (17:33)
[2017-10-26 06:37] LABS: HEMOGLOBIN 8.4 g/dL (12.0-18.0); MEAN CELL VOLUME 79.4 fL (80.0-94.0); MEAN CORPUSCULAR HEMOGLOBIN 27.1 pg (27.0-31.0); MEAN CORPUSCULAR HGB CONC 34.1 g/dL (33.0-37.0); MEAN PLATELET VOLUME 11.1 fL (7.2-11.7); RBC 3.11 Mil/uL (4.40-5.90); RED CELL DISTRIBUTION WIDTH 13.9 % (11.5-14.5)
[2017-10-26 07:11] LABS: ALBUMIN 2.9 g/dL (3.5-5.0); CALCIUM 7.9 mg/dl (8.6-10.4)
[2017-10-26] MEDS: (Novolin R) Insulin Human Regular 100 units/ml vial SC SCH ×4 (07:53→22:19)
--- NOTE | 2017-10-26 08:16 | RAD ---
Chest x-ray single frontal view History: Fluid overload. Comparison: 10/24/2017 Findings: Mild venous congestion. No gross focal infiltrate or effusion. Tortuous aorta. Top normal heart size. Degenerative changes in the spine and shoulders. Impression: Mild venous congestion. No gross focal infiltrate or effusion. Tortuous aorta.
[2017-10-26] MEDS: Enoxaparin 30 mg Syringe SC SCH (09:39)
[2017-10-26 16:52] VITALS: RESP 20
[2017-10-26] MEDS: (Lantus) Insulin Glargine, Recombinant SC SCH (18:30)
--- NOTE | 2017-10-26 20:15 | CP.PCM.PN ---
Subjective - Date & Time of Evaluation Date of Evaluation: 10/26/17 Time of Evaluation: 07:15 - Subjective Subjective: Patient seen and examined at bedside. Per nursing no acute events occurred overnight . The patient reports tolerating diet with no issue. The patient also reports ambulating with no problem. Denies chest pain, shortness of breath, fevers, chills, changes in vision, nausea, vomiting, or any other complaints. Objective - Vital Signs/Intake and Output Vital Signs (last 24 hours): Temp Pulse Resp BP Pulse Ox 98.0 F 76 20 155/80 H 99 10/26/17 16:44 10/26/17 16:44 10/26/17 16:44 10/26/17 16:44 10/26/17 17:25 Intake and Output: 10/26/17 10/27/17 18:59 06:59 Output Total 600 Balance -600 - Medications Medications: Current Medications Aspirin (Aspirin Chewable) 81 mg PO DAILY [facility] Last Admin: 10/26/17 09:45 Dose: 81 mg Enoxaparin Sodium (Lovenox) 30 mg SC DAILY [facility] Last Admin: 10/26/17 09:39 Dose: 30 mg Insulin Glargine (Lantus) 15 unit SC QPM [facility] Last Admin: 10/26/17 18:30 Dose: 15 u Insulin Human Regular (Novolin R) 0 unit SC ACHS [facility] PRN Reason: Protocol Last Admin: 10/26/17 17:10 Dose: 2 unit Lisinopril (Zestril) 5 mg PO DAILY [facility] Last Admin: 10/26/17 09:39 Dose: 5 mg Rosuvastatin Calcium (Crestor) 5 mg PO HS [facility] Last Admin: 10/25/17 22:22 Dose: 5 mg - Labs Labs: 10/26/17 06:25 10/26/17 06:23 - Head Exam Head Exam: ATRAUMATIC, NORMAL INSPECTION, NORMOCEPHALIC - Eye Exam Eye Exam: EOMI, Normal appearance, PERRL Pupil Exam: NORMAL ACCOMODATION, PERRL. absent: Irregular, Unequal - ENT Exam ENT Exam: Mucous Membranes Moist, Normal Exam, Normal Oropharynx - Neck Exam Neck Exam: absent: Lymphadenopathy, Thyromegaly - Respiratory Exam Respiratory Exam: Clear to Ausculation Bilateral, NORMAL BREATHING PATTERN. absent: Chest Wall Tenderness, Prolonged Expiratory Phase, Respiratory Distress - Cardiovascular Exam Cardiovascular Exam: REGULAR RHYTHM, RRR, +S1, +S2. absent: Rubs - GI/Abdominal Exam GI & Abdominal Exam: Soft, Normal Bowel Sounds. absent: Rigid, Hyperactive Bowel Sounds - Extremities Exam Extremities Exam: Full ROM, Normal Inspection. absent: Joint Swelling, Pedal Edema, Tenderness - Back Exam Back Exam: NORMAL INSPECTION. absent: CVA tenderness (L), CVA tenderness (R), paraspinal tenderness - Neurological Exam Neurological Exam: Alert, Awake, CN II-XII Intact, Normal Gait, Oriented x3 - Psychiatric Exam Psychiatric exam: Normal Affect, Normal Mood. absent: Anxious, Depressed - Skin Skin Exam: Dry, Intact, Normal Color, Warm Assessment and Plan - Assessment and Plan (Free Text) Plan: Hyperosmolar hyperglycemic non-ketotic syndrome 10/26: Patient is doing well. No ketones, overnight was on insulin ggt, IVF. He is tolerating PO diet Continue SSI - R, statin, MIRELA-I and ASA. HgbA1c 19.3%. Hyponatremia 123 Today. Will continue to monitor with serial CMP's. Tolerating PO diet CKD Chronic (baseline Cr ~3.8) Admission Cr 3.0; GFR 26 Today CR 2.9. Will continue to monitor. CHF (systolic) Repeat chest xray: mild venous congestion, no gross focal infiltrates, and a tortous aorta ECHO (09/2016): EF 28%, Tricuspid regurgitation, moderate pulm HTN Pt volume depleted, is being aggressively rehydrated, will monitor for overload Continue Zestril 5 mg PO Daily Hematuria UA (10/24/17): 1+ blood Monitor, will repeat UA later in course Prophylaxis SCDs Lovenox GI ppx not indicated at this time
--- NOTE | 2017-10-26 22:52 | CARD ---
APPROVED REPORT EKG Measurement Heart [id number] <Conclusion> Normal sinus rhythm Right bundle branch block Left anterior fascicular block Bifascicular block T wave abnormality, consider lateral ischemia Abnormal ECG
[2017-10-27] MEDS: (Novolin R) Insulin Human Regular 100 units/ml vial SC SCH ×4 (08:02→21:47)
[2017-10-27] MEDS: Enoxaparin 30 mg Syringe SC SCH (10:29)
[2017-10-27 12:14] LABS: BASO % 0.2 % (0.0-2.0); EOS # 0.1 K/uL (0.0-0.7); EOS % 1.2 % (0.0-4.0); HEMOGLOBIN 8.7 g/dL (12.0-18.0); LYMPH # 1.8 K/uL (1.0-4.3); LYMPH % 25.8 % (20.0-40.0); MEAN CORPUSCULAR HEMOGLOBIN 27.4 pg (27.0-31.0); MEAN CORPUSCULAR HGB CONC 33.5 g/dL (33.0-37.0); MEAN PLATELET VOLUME 10.1 fL (7.2-11.7); MONO # 0.5 K/uL (0.0-0.8); MONO % 7.9 % (0.0-10.0); NEUT # 4.5 K/uL (1.8-7.0); NEUT % 64.9 % (50.0-75.0); RBC 3.18 Mil/uL (4.40-5.90); RED CELL DISTRIBUTION WIDTH 13.6 % (11.5-14.5); WHITE BLOOD COUNT 6.9 K/uL (4.8-10.8)
[2017-10-27 12:26] LABS: MEAN CELL VOLUME 81.7 fL (80.0-94.0)
[2017-10-27 13:24] LABS: ALBUMIN 3.1 g/dL (3.5-5.0); CALCIUM 8.1 mg/dl (8.6-10.4)
--- NOTE | 2017-10-27 16:48 | CP.PCM.PN ---
Subjective - Date & Time of Evaluation Date of Evaluation: 10/27/17 Time of Evaluation: 06:47 Objective - Vital Signs/Intake and Output Vital Signs (last 24 hours): Temp Pulse Resp BP Pulse Ox 97.5 F L 89 20 153/90 H 99 10/27/17 15:15 10/27/17 15:15 10/27/17 15:15 10/27/17 15:15 10/27/17 15:15 Intake and Output: 10/27/17 10/27/17 06:59 18:59 Intake Total 400 840 Output Total 0 Balance 400 840 - Medications Medications: Current Medications Aspirin (Aspirin Chewable) 81 mg PO DAILY [facility] Last Admin: 10/27/17 10:29 Dose: 81 mg Enoxaparin Sodium (Lovenox) 30 mg SC DAILY [facility] Last Admin: 10/27/17 10:29 Dose: 30 mg Insulin Glargine (Lantus) 18 unit SC QPM [facility] Insulin Human Regular (Novolin R) 0 unit SC ACHS [facility] PRN Reason: Protocol Last Admin: 10/27/17 12:38 Dose: 12 unit Lisinopril (Zestril) 5 mg PO DAILY [facility] Last Admin: 10/27/17 10:29 Dose: 5 mg Rosuvastatin Calcium (Crestor) 5 mg PO HS [facility] Last Admin: 10/26/17 22:13 Dose: 5 mg - Labs Labs: 10/27/17 12:03 10/27/17 12:03
--- NOTE | 2017-10-27 16:50 | CP.PCM.DIS ---
Provider - Provider Date of Admission: 10/24/17 14:14 Attending physician: Wilber Oconnor DO Primary care physician: PMD: Dr. Mitchell Consults: Critical Care: Dr. Stewart Time Spent in preparation of Discharge (in minutes): 45 Hospital Course - Lab Results Lab Results: Micro Results 10/24/17 16:46 Naris MRSA Culture (Admit) - Final MRSA NOT DETECTED Most Recent Lab Values WBC 6.9 K/uL (4.8-10.8) 10/27/17 12:03 RBC 3.18 Mil/uL (4.40-5.90) L 10/27/17 12:03 Hgb 8.7 g/dL (12.0-18.0) L 10/27/17 12:03 Hct 26.0 % (35.0-51.0) L 10/27/17 12:03 MCV 81.7 fL (80.0-94.0) D 10/27/17 12:03 MCH 27.4 pg (27.0-31.0) 10/27/17 12:03 MCHC 33.5 g/dL (33.0-37.0) 10/27/17 12:03 RDW 13.6 % (11.5-14.5) 10/27/17 12:03 Plt Count 142 K/uL (130-400) 10/27/17 12:03 MPV 10.1 fL (7.2-11.7) 10/27/17 12:03 Neut % (Auto) 64.9 % (50.0-75.0) 10/27/17 12:03 Lymph % (Auto) 25.8 % (20.0-40.0) 10/27/17 12:03 [place] % (Auto) 7.9 % (0.0-10.0) 10/27/17 12:03 Eos % (Auto) 1.2 % (0.0-4.0) 10/27/17 12:03 Baso % (Auto) 0.2 % (0.0-2.0) 10/27/17 12:03 Neut # 4.5 K/uL (1.8-7.0) 10/27/17 12:03 Lymph # 1.8 K/uL (1.0-4.3) 10/27/17 12:03 [place] # 0.5 K/uL (0.0-0.8) 10/27/17 12:03 Eos # 0.1 K/uL (0.0-0.7) 10/27/17 12:03 Baso # 0.0 K/uL (0.0-0.2) 10/27/17 12:03 pO2 41 mm/Hg (30-55) 10/25/17 05:20 VBG pH 7.30 (7.32-7.43) L 10/25/17 05:20 VBG pCO2 41 mmHg (40-60) 10/25/17 05:20 VBG HCO3 19.6 mmol/L 10/25/17 05:20 VBG Total CO2 21.5 mmol/L (22-28) L 10/25/17 05:20 VBG O2 Sat (Calc) 83.3 % (40-65) H 10/25/17 05:20 VBG Base Excess -5.9 mmol/L (0.0-2.0) L 10/25/17 05:20 VBG Potassium 4.1 mmol/L (3.6-5.2) 10/25/17 05:20 Sodium 135.0 mmol/l (132-148) 10/25/17 05:20 Chloride 109.0 mmol/L (98-107) H 10/25/17 05:20 Glucose 244 mg/dl (75-110) H 10/25/17 05:20 Lactate 0.6 mmol/L (0.7-2.1) L 10/25/17 05:20 Sodium 121 mmol/L (132-148) L 10/27/17 12:03 Potassium 5.4 mmol/L (3.6-5.2) H 10/27/17 12:03 Chloride 92 mmol/L (98-107) L 10/27/17 12:03 Carbon Dioxide 21 mmol/L (22-30) L 10/27/17 12:03 Anion Gap 14 (10-20) 10/27/17 12:03 BUN 54 mg/dL (9-20) H 10/27/17 12:03 Creatinine 2.9 mg/dL (0.8-1.5) H 10/27/17 12:03 Est GFR ( Amer) 27 10/27/17 12:03 Est GFR (Non-Af Amer) 22 10/27/17 12:03 POC Glucose (mg/dL) > 500 mg/dL (65-110) H* 10/27/17 11:08 Random Glucose 640 mg/dL (75-110) H* D 10/27/17 12:03 Hemoglobin A1c 19.3 % (4.2-6.5) H D 10/24/17 15:37 Serum Osmolality 312 mosm/kg (272-300) H 10/24/17 15:37 Calcium 8.1 mg/dl (8.6-10.4) L 10/27/17 12:03 Phosphorus 3.0 mg/dL (2.5-4.5) 10/25/17 06:24 Magnesium 1.5 mg/dL (1.6-2.3) L 10/25/17 06:24 Total Bilirubin 0.4 mg/dL (0.2-1.3) 10/27/17 12:03 AST 12 U/L (17-59) L 10/27/17 12:03 ALT 21 U/L (21-72) D 10/27/17 12:03 Alkaline Phosphatase 104 U/L (38-126) 10/27/17 12:03 Troponin I < 0.0120 ng/mL (0.00-0.120) 10/24/17 12:43 NT-Pro-B Natriuret Pep 384 pg/mL (0-900) 10/24/17 15:37 Total Protein 6.2 g/dL (6.3-8.3) L 10/27/17 12:03 Albumin 3.1 g/dL (3.5-5.0) L 10/27/17 12:03 Globulin 3.1 gm/dL (2.2-3.9) 10/27/17 12:03 Albumin/Globulin Ratio 1.0 (1.0-2.1) 10/27/17 12:03 Triglycerides Cancelled 10/24/17 15:37 Cholesterol Cancelled 10/24/17 15:37 LDL Cholesterol Direct Cancelled 10/24/17 15:37 HDL Cholesterol Cancelled 10/24/17 15:37 Lipase 319 U/L (23-300) H 10/24/17 12:43 Procalcitonin 0.11 NG/ML (0.19-0.49) L 10/24/17 17:37 Venous Blood Potassium 4.1 mmol/L (3.6-5.2) 10/25/17 05:20 Urine Color Straw (YELLOW) 10/24/17 13:01 Urine Clarity Clear (Clear) 10/24/17 13:01 Urine pH 6.0 (5.0-8.0) 10/24/17 13:01 Ur Specific [place] 1.014 (1.003-1.030) 10/24/17 13:01 Urine Protein Negative mg/dL (NEGATIVE) 10/24/17 13:01 Urine Glucose (UA) 3+ mg/dL (Normal) H 10/24/17 13:01 Urine Ketones Negative mg/dL (NEGATIVE) 10/24/17 13:01 Urine Blood 1+ (NEGATIVE) H 10/24/17 13:01 Urine Nitrate Negative (NEGATIVE) 10/24/17 13:01 Urine Bilirubin Negative (NEGATIVE) 10/24/17 13:01 Urine Urobilinogen Normal mg/dL (0.2-1.0) 10/24/17 13:01 Ur Leukocyte Esterase Neg [place]/uL (Negative) 10/24/17 13:01 Urine WBC (Auto) 2 /hpf (0-5) 10/24/17 13:01 Urine RBC (Auto) 4 /hpf (0-3) H 10/24/17 13:01 Ur Squamous Epith Cells < 1 /hpf (0-5) 10/24/17 13:01 Urine Osmolality 338 mosm/kg (300-1000) 10/24/17 16:40 Serum Ketones Negative (NEGATIVE) 10/25/17 06:24 Discharge Exam - Head Exam Head Exam: ATRAUMATIC, NORMAL INSPECTION, NORMOCEPHALIC - Eye Exam Eye Exam: EOMI, Normal appearance, PERRL Pupil Exam: NORMAL ACCOMODATION, PERRL. absent: Irregular, Unequal - ENT Exam ENT Exam: Mucous Membranes Moist, Normal Oropharynx - Respiratory Exam Respiratory Exam: Clear to PA & Lateral, NORMAL BREATHING PATTERN, UNREMARKABLE. absent: Decreased Breath Sounds, Rales, Rhonchi - Cardiovascular Exam Cardiovascular Exam: REGULAR RHYTHM, RRR, +S1, +S2. absent: Gallop, Rubs - GI/Abdominal Exam GI & Abdominal Exam: Normal Bowel Sounds, Unremarkable. absent: Hypoactive Bowel Sounds, Organomegaly - Extremities Exam Extremities exam: full ROM - Back Exam Back exam: NORMAL INSPECTION. absent: CVA tenderness (R), paraspinal tenderness - Neurological Exam Neurological exam: Alert, CN II-XII Intact, Normal Gait, Oriented x3 - Psychiatric Exam Psychiatric exam: Normal Affect, Normal Mood - Skin Skin Exam: Dry, Intact, Normal Color, Warm Discharge Plan - Discharge Medications Prescriptions: Insulin Human NPH [Humulin N] 15 unit SC QAM #1 vial Insulin Human NPH [Humulin N] 12 unit SC HS #1 vial Lisinopril [Zestril] 5 mg PO DAILY #30 tab - Follow Up Plan Condition: FAIR Disposition: HOME/ ROUTINE Referrals: Mónica Stewart MD [Staff Provider] -
--- NOTE | 2017-10-27 17:16 | CP.PCM.PN ---
Subjective - Date & Time of Evaluation Date of Evaluation: 10/27/17 Time of Evaluation: 06:16 - Subjective Subjective: Patient seen and examined at bedside. Per nursing no acute events occurred overnight . The patient reports tolerating diet with no issue. The patient also reports ambulating with no problem. The patient denies any syncopal episodes. Denies chest pain, shortness of breath, fevers, chills, changes in vision, nausea, vomiting, or any other complaints. Objective - Vital Signs/Intake and Output Vital Signs (last 24 hours): Temp Pulse Resp BP Pulse Ox 97.5 F L 89 20 153/90 H 99 10/27/17 15:15 10/27/17 15:15 10/27/17 15:15 10/27/17 15:15 10/27/17 15:15 Intake and Output: 10/27/17 10/27/17 06:59 18:59 Intake Total 400 840 Output Total 0 Balance 400 840 - Medications Medications: Current Medications Aspirin (Aspirin Chewable) 81 mg PO DAILY [facility] Last Admin: 10/27/17 10:29 Dose: 81 mg Enoxaparin Sodium (Lovenox) 30 mg SC DAILY [facility] Last Admin: 10/27/17 10:29 Dose: 30 mg Insulin Glargine (Lantus) 18 unit SC QPM [facility] Insulin Human Regular (Novolin R) 0 unit SC ACHS [facility] PRN Reason: Protocol Last Admin: 10/27/17 12:38 Dose: 12 unit Lisinopril (Zestril) 5 mg PO DAILY [facility] Last Admin: 10/27/17 10:29 Dose: 5 mg Rosuvastatin Calcium (Crestor) 5 mg PO HS [facility] Last Admin: 10/26/17 22:13 Dose: 5 mg - Labs Labs: 10/27/17 12:03 10/27/17 12:03 - Head Exam Head Exam: ATRAUMATIC, NORMAL INSPECTION, NORMOCEPHALIC - Eye Exam Eye Exam: EOMI, Normal appearance, PERRL. absent: Periorbital tenderness Pupil Exam: NORMAL ACCOMODATION, PERRL. absent: Irregular, Unequal - ENT Exam ENT Exam: Mucous Membranes Moist, Normal Exam, Normal Oropharynx - Neck Exam Neck Exam: Full ROM. absent: Lymphadenopathy, Thyromegaly - Respiratory Exam Respiratory Exam: Clear to Ausculation Bilateral, NORMAL BREATHING PATTERN. absent: Prolonged Expiratory Phase, Respiratory Distress - Cardiovascular Exam Cardiovascular Exam: REGULAR RHYTHM, RRR, +S1, +S2. absent: Rubs - GI/Abdominal Exam GI & Abdominal Exam: Soft, Normal Bowel Sounds. absent: Rigid, Hyperactive Bowel Sounds - Extremities Exam Extremities Exam: Full ROM, Normal Inspection. absent: Joint Swelling, Pedal Edema, Tenderness - Back Exam Back Exam: NORMAL INSPECTION. absent: CVA tenderness (L), CVA tenderness (R), paraspinal tenderness - Neurological Exam Neurological Exam: Alert, Awake, CN II-XII Intact, Normal Gait, Oriented x3 - Psychiatric Exam Psychiatric exam: Normal Affect, Normal Mood - Skin Skin Exam: Dry, Intact, Normal Color Assessment and Plan - Assessment and Plan (Free Text) Plan: Hyperosmolar hyperglycemic non-ketotic syndrome 10/26: Patient is doing well. No ketones, overnight was on insulin ggt, IVF. He is tolerating PO diet Continue SSI - R, statin, MIRELA-I and ASA. HgbA1c 19.3%. Repeat Glucose was over 500. Discharged cancelled. Will re-evaluate tomorrow. Hyponatremia 123 Today. Will continue to monitor with serial CMP's. Tolerating PO diet CKD Chronic (baseline Cr ~3.8) Admission Cr 3.0; GFR 26 Today CR 2.9. Will continue to monitor. CHF (systolic) Repeat chest xray: mild venous congestion, no gross focal infiltrates, and a tortous aorta ECHO (09/2016): EF 28%, Tricuspid regurgitation, moderate pulm HTN Pt volume depleted, is being aggressively rehydrated, will monitor for overload Continue Zestril 5 mg PO Daily Hematuria UA (10/24/17): 1+ blood Monitor, will repeat UA later in course Prophylaxis SCDs Lovenox GI ppx not indicated at this time
[2017-10-27] MEDS ORDERED: (Lantus) Insulin Glargine, Recombinant SC SCH (18:00)
[2017-10-28] MEDS: (Novolin R) Insulin Human Regular 100 units/ml vial SC SCH ×4 (08:06→22:01)
[2017-10-28] MEDS: Enoxaparin 30 mg Syringe SC SCH (11:04)
[2017-10-28 11:09] LABS: BASO % 0.5 % (0.0-2.0); EOS # 0.1 K/uL (0.0-0.7); EOS % 1.2 % (0.0-4.0); HEMOGLOBIN 10.1 g/dL (12.0-18.0); LYMPH # 2.2 K/uL (1.0-4.3); LYMPH % 24.7 % (20.0-40.0); MEAN CELL VOLUME 80.8 fL (80.0-94.0); MEAN CORPUSCULAR HEMOGLOBIN 27.7 pg (27.0-31.0); MEAN CORPUSCULAR HGB CONC 34.3 g/dL (33.0-37.0); MEAN PLATELET VOLUME 10.1 fL (7.2-11.7); MONO # 0.5 K/uL (0.0-0.8); NEUT # 6.1 K/uL (1.8-7.0); NEUT % 67.6 % (50.0-75.0); RBC 3.66 Mil/uL (4.40-5.90); RED CELL DISTRIBUTION WIDTH 13.7 % (11.5-14.5)
[2017-10-28 12:10] LABS: ALBUMIN 3.7 g/dL (3.5-5.0); CALCIUM 8.7 mg/dl (8.6-10.4)
--- NOTE | 2017-10-28 12:38 | CP.PCM.PN ---
<Cachorro Jackson - Last Filed: 10/28/17 17:39> Subjective - Date & Time of Evaluation Date of Evaluation: 10/28/17 Time of Evaluation: 07:38 - Subjective Subjective: Patient seen and examined at bedside. Per nursing no acute events occurred overnight . The patient reports tolerating diet with no issue. The patient is passing his bowels with no issue. The patient denies any syncopal episodes. Denies chest pain, shortness of breath, fevers, chills, changes in vision, nausea, vomiting, or any other complaints. Objective - Vital Signs/Intake and Output Vital Signs (last 24 hours): Temp Pulse Resp BP Pulse Ox 98.2 F 60 20 135/69 98 10/28/17 07:57 10/28/17 07:57 10/28/17 07:57 10/28/17 07:57 10/28/17 07:57 Intake and Output: 10/28/17 10/28/17 06:59 18:59 Intake Total 1000 Balance 1000 - Medications Medications: Current Medications Aspirin (Aspirin Chewable) 81 mg PO DAILY [facility] Last Admin: 10/28/17 11:04 Dose: 81 mg Enoxaparin Sodium (Lovenox) 30 mg SC DAILY [facility] Last Admin: 10/28/17 11:04 Dose: 30 mg Insulin Glargine (Lantus) 18 unit SC QPM [facility] Last Admin: 10/27/17 17:29 Dose: 18 units Insulin Human Regular (Novolin R) 0 unit SC ACHS [facility] PRN Reason: Protocol Last Admin: 10/28/17 08:06 Dose: 4 unit Lisinopril (Zestril) 5 mg PO DAILY [facility] Last Admin: 10/28/17 11:04 Dose: 5 mg Rosuvastatin Calcium (Crestor) 5 mg PO HS [facility] Last Admin: 10/27/17 21:43 Dose: 5 mg - Labs Labs: 10/28/17 10:59 10/28/17 10:59 - Head Exam Head Exam: ATRAUMATIC, NORMAL INSPECTION, NORMOCEPHALIC - Eye Exam Eye Exam: EOMI, Normal appearance, PERRL. absent: Periorbital tenderness Pupil Exam: NORMAL ACCOMODATION, PERRL. absent: Irregular, Unequal - ENT Exam ENT Exam: Mucous Membranes Moist, Normal Oropharynx - Neck Exam Neck Exam: Full ROM, Normal Inspection. absent: Lymphadenopathy, Thyromegaly - Respiratory Exam Respiratory Exam: Clear to Ausculation Bilateral, NORMAL BREATHING PATTERN. absent: Chest Wall Tenderness, Prolonged Expiratory Phase, Respiratory Distress - Cardiovascular Exam Cardiovascular Exam: REGULAR RHYTHM, RRR, +S1, +S2. absent: Gallop, Rubs - GI/Abdominal Exam GI & Abdominal Exam: Soft, Normal Bowel Sounds. absent: Rigid, Hyperactive Bowel Sounds - Extremities Exam Extremities Exam: Full ROM. absent: Joint Swelling, Pedal Edema - Back Exam Back Exam: NORMAL INSPECTION. absent: CVA tenderness (L), CVA tenderness (R), paraspinal tenderness - Neurological Exam Neurological Exam: Alert, Awake, CN II-XII Intact, Normal Gait, Oriented x3 - Psychiatric Exam Psychiatric exam: Normal Affect, Normal Mood Assessment and Plan - Assessment and Plan (Free Text) Plan: Hyperosmolar hyperglycemic non-ketotic syndrome 10/26: Patient is doing well. No ketones, overnight was on insulin ggt, IVF. He is tolerating PO diet Continue SSI - R, statin, MIRELA-I and ASA. HgbA1c 19.3%. Repeat Glucose was over 500. Endocrinology (Dr. Lui) consulted. help appreciated Diabetic education ordered. Will discuss with patient before being discharged. Hyponatremia 123 Today. Will continue to monitor with serial CMP's. Tolerating PO diet CKD Chronic (baseline Cr ~3.8) Admission Cr 3.0; GFR 26 Today CR 3.2. Will continue to monitor. CHF (systolic) Repeat chest xray: mild venous congestion, no gross focal infiltrates, and a tortous aorta ECHO (09/2016): EF 28%, Tricuspid regurgitation, moderate pulm HTN Pt volume depleted, is being aggressively rehydrated, will monitor for overload Continue Zestril 5 mg PO Daily Hematuria UA (10/24/17): 1+ blood Monitor, will repeat UA later in course Prophylaxis SCDs Lovenox GI ppx not indicated at this time <Rosalinda Vaughn - Last Filed: 10/28/17 19:20> Objective - Vital Signs/Intake and Output Vital Signs (last 24 hours): Temp Pulse Resp BP Pulse Ox 97.2 F L 78 20 149/80 99 10/28/17 15:15 10/28/17 15:15 10/28/17 15:15 10/28/17 15:15 10/28/17 15:15 Intake and Output: 10/28/17 10/29/17 18:59 06:59 Intake Total 500 Balance 500 - Medications Medications: Current Medications Aspirin (Aspirin Chewable) 81 mg PO DAILY [facility] Last Admin: 10/28/17 11:04 Dose: 81 mg Enoxaparin Sodium (Lovenox) 30 mg SC DAILY [facility] Last Admin: 10/28/17 11:04 Dose: 30 mg Insulin Human NPH (Novolin N) 24 unit SC HS [facility] Insulin Human NPH (Novolin N) 20 unit SC ACB [facility] Insulin Human Regular (Novolin R) 12 unit SC ACBD [facility] Last Admin: 10/28/17 16:52 Dose: 12 unit Insulin Human Regular (Novolin R) 0 unit SC ACHS [facility] PRN Reason: Protocol Last Admin: 10/28/17 16:52 Dose: 6 unit Lisinopril (Zestril) 5 mg PO DAILY [facility] Last Admin: 10/28/17 11:04 Dose: 5 mg Rosuvastatin Calcium (Crestor) 5 mg PO HS [facility] Last Admin: 10/27/17 21:43 Dose: 5 mg - Labs Labs: 10/28/17 10:59 10/28/17 10:59 Attending/Attestation - Attestation I have personally seen and examined this patient.: Yes I have fully participated in the care of the patient.: Yes I have reviewed all pertinent clinical information, including history, physical exam and plan: Yes
[2017-10-28] MEDS ORDERED: (Novolin R) Insulin Human Regular 100 units/ml vial SC SCH (16:30)
[2017-10-28] MEDS ORDERED: (Novolin N) Insulin Human Isophane (NPH) 100 u/ml 10 ml vial SC SCH (22:00)
[2017-10-29] MEDS: (Novolin R) Insulin Human Regular 100 units/ml vial SC SCH ×6 (03:15→21:19)
[2017-10-29 06:59] LABS: ALBUMIN 3.4 g/dL (3.5-5.0); CALCIUM 8.5 mg/dl (8.6-10.4)
[2017-10-29] MEDS ORDERED: (Novolin N) Insulin Human Isophane (NPH) 100 u/ml 10 ml vial SC SCH ×3 (07:30→22:00)
[2017-10-29] MEDS ORDERED: (Novolin R) Insulin Human Regular 100 units/ml vial SC SCH ×2 (07:30→16:30)
[2017-10-29] MEDS ORDERED: Sod Polystyrene Sulf 15 gm/60 ml Susp PO ONE (07:32)
--- NOTE | 2017-10-29 07:34 | CON ---
DATE: ENDOCRINOLOGY CONSULTATION LOCATION: Room 351 B. HISTORY OF PRESENT ILLNESS: This is a 67-year-old male with known history of type 2 insulin-requiring diabetes, presenting here with generalized body weakness and marked polyuria, polydipsia, nocturia, and is being referred now for diabetic management of recent hyperglycemic accelerations as noted thereof. PAST MEDICAL HISTORY: History of type 2 insulin-requiring diabetes, currently on a combination of NPH given twice daily, 20 units as noted, no rapid or short acting insulins are being used at this time; history of hypertension; dyslipidemia; history of diabetic retinopathy, polyneuropathy, and nephropathy as noted. FAMILY HISTORY: Positive for diabetes and hypertension. SOCIAL HISTORY: Admits to nicotine dependence for over 30 years at this time with occasional social use of alcohol. No other illicit drug use. REVIEW OF SYSTEMS: As mentioned above, admits to generalized body weakness with episodic bouts of dizziness and lightheadedness, worse on the day of admission. No chest pains or palpitations, although admits to episodic bouts of shortness of breath, especially on exertion. His oral intake has been variable with nausea, dyspepsia, and vague upper abdominal pains, also admits to marked polyuria, nocturia, polydipsia, and about a 10-pound or so weight loss, also admits to lower extremity painful paresthesias. PHYSICAL EXAMINATION: GENERAL: This is an average-built male, in no apparent distress. VITAL SIGNS: Blood pressure of 150/90, pulse of 100 beats per minute and regular, temperature 99, respirations 20. Height is 5 feet 4 inches, weight is 136 pounds. HEENT: Head is normocephalic. Eyes anicteric with pink conjunctivae. Funduscopy not possible at this time. Ears, nose, and throat otherwise normal. NECK: Supple. Thyroid gland is normal in size. No carotid bruits or any cervical adenopathy. CARDIOPULMONARY: Adynamic precordium. S1 and S2 is rapid and regular. LUNGS: Clear to auscultation. ABDOMEN: Flat, soft with positive bowel sounds. EXTREMITIES: No peripheral edema. Pulses are +2 bilaterally. LABORATORY DATA: The chemistry shows a BUN of 65, sodium 130, potassium 5.3, chloride 96, CO2 of 22, glucose 427, and creatinine 3.2. His glucose levels have ranged from 229 to 414 mg/dL. ASSESSMENT: This is a 67-year-old male with uncontrolled and decompensated type 2 insulin-requiring diabetes with suboptimal metabolic control and also with concomitant diabetic microvascular complications of retinopathy, polyneuropathy, and nephropathy as noted. PLAN OF MANAGEMENT: As discussed with the patient and the staff, we will switch him over to more affordable insulin medications, especially that he has financial constraints and lack of medical insurance and especially as Lantus cost over 200 dollars per month as noted. We would switch him over to a more affordable insulin preparation such as the older conventional one such as a combination of NPH given twice daily and regular insulin given b.i.d. or t.i.d. before meals as indicated. This above insulin vials cost 30 dollars in [facility] or [facility] and is clearly more affordable and this will enhance compliance also for outpatient diabetic management. We will obtain serial chemistries and supplement accordingly as needed. We will follow this. Hawa Lui MD
[2017-10-29] MEDS: Enoxaparin 30 mg Syringe SC SCH (09:58)
[2017-10-29 14:25] LABS: BASO % 0.4 % (0.0-2.0); EOS # 0.2 K/uL (0.0-0.7); EOS % 1.5 % (0.0-4.0); HEMOGLOBIN 9.9 g/dL (12.0-18.0); LYMPH # 2.8 K/uL (1.0-4.3); LYMPH % 26.1 % (20.0-40.0); MEAN CELL VOLUME 82.1 fL (80.0-94.0); MEAN CORPUSCULAR HEMOGLOBIN 26.9 pg (27.0-31.0); MEAN CORPUSCULAR HGB CONC 32.8 g/dL (33.0-37.0); MEAN PLATELET VOLUME 10.5 fL (7.2-11.7); MONO # 0.9 K/uL (0.0-0.8); MONO % 8.4 % (0.0-10.0); NEUT # 6.8 K/uL (1.8-7.0); NEUT % 63.6 % (50.0-75.0); NRBC % 0.2 % (0.0-2.0); RBC 3.66 Mil/uL (4.40-5.90); RED CELL DISTRIBUTION WIDTH 13.6 % (11.5-14.5); WHITE BLOOD COUNT 10.7 K/uL (4.8-10.8)
--- NOTE | 2017-10-29 17:19 | CP.PCM.PN ---
Subjective - Date & Time of Evaluation Date of Evaluation: 10/29/17 Time of Evaluation: 17:19 - Subjective Subjective: Patient seen and examined at bedside. Per nursing no acute events occurred overnight . The patient reports tolerating diet with no issue. is reporting difficulty passing his bowels today. The patient denies any syncopal episodes. Denies chest pain, shortness of breath, fevers, chills, changes in vision, nausea, vomiting, or any other complaints. Objective - Vital Signs/Intake and Output Vital Signs (last 24 hours): Temp Pulse Resp BP Pulse Ox 97.8 F 81 20 136/77 95 10/29/17 15:00 10/29/17 15:00 10/29/17 15:00 10/29/17 15:00 10/29/17 15:00 Intake and Output: 10/29/17 10/29/17 06:59 18:59 Intake Total 700 450 Balance 700 450 - Medications Medications: Current Medications Aspirin (Aspirin Chewable) 81 mg PO DAILY [facility] Last Admin: 10/29/17 09:58 Dose: 81 mg Docusate Sodium (Colace) 100 mg PO BID [facility] Last Admin: 10/29/17 17:16 Dose: 100 mg Enoxaparin Sodium (Lovenox) 30 mg SC DAILY [facility] Last Admin: 10/29/17 09:58 Dose: 30 mg Insulin Human NPH (Novolin N) 34 unit SC HS [facility] Insulin Human NPH (Novolin N) 40 unit SC ACB [facility] Insulin Human Regular (Novolin R) 0 unit SC ACHS [facility] PRN Reason: Protocol Last Admin: 10/29/17 17:09 Dose: Not Given Insulin Human Regular (Novolin R) 20 unit SC ACBD [facility] Last Admin: 10/29/17 17:08 Dose: 20 unit Lisinopril (Zestril) 5 mg PO DAILY [facility] Last Admin: 10/29/17 09:58 Dose: 5 mg Rosuvastatin Calcium (Crestor) 5 mg PO HS [facility] Last Admin: 10/28/17 22:00 Dose: 5 mg - Labs Labs: 10/29/17 14:06 10/29/17 06:31 - Head Exam Head Exam: ATRAUMATIC, NORMAL INSPECTION, NORMOCEPHALIC - Eye Exam Eye Exam: EOMI, Normal appearance, PERRL. absent: Periorbital tenderness Pupil Exam: NORMAL ACCOMODATION, PERRL. absent: Irregular, Unequal - ENT Exam ENT Exam: Mucous Membranes Moist, Normal Exam, Normal Oropharynx - Neck Exam Neck Exam: Normal Inspection. absent: Lymphadenopathy, Thyromegaly - Respiratory Exam Respiratory Exam: Clear to Ausculation Bilateral, NORMAL BREATHING PATTERN. absent: Chest Wall Tenderness, Prolonged Expiratory Phase, Respiratory Distress - Cardiovascular Exam Cardiovascular Exam: REGULAR RHYTHM, RRR, +S1, +S2. absent: Gallop, Rubs - GI/Abdominal Exam GI & Abdominal Exam: Soft, Normal Bowel Sounds. absent: Rigid, Hyperactive Bowel Sounds - Extremities Exam Extremities Exam: Full ROM. absent: Joint Swelling, Pedal Edema, Tenderness - Back Exam Back Exam: NORMAL INSPECTION. absent: CVA tenderness (L), CVA tenderness (R), paraspinal tenderness - Neurological Exam Neurological Exam: Alert, Awake, CN II-XII Intact, Normal Gait, Oriented x3 - Psychiatric Exam Psychiatric exam: Normal Affect, Normal Mood - Skin Skin Exam: Dry, Intact, Normal Color, Warm Assessment and Plan - Assessment and Plan (Free Text) Plan: Hyperosmolar hyperglycemic non-ketotic syndrome 10/26: Patient is doing well. No ketones, overnight was on insulin ggt, IVF. He is tolerating PO diet Continue SSI - R, statin, MIRELA-I and ASA. HgbA1c 19.3%. Repeat Glucose was over 500. Endocrinology (Dr. Lui) consulted. Rec's appreciated. Diabetic education ordered. Will discuss with patient before being discharged. Hyponatremia 127 Today. Will continue to monitor with serial CMP's. Tolerating PO diet CKD Chronic (baseline Cr ~3.8) Admission Cr 3.0; GFR 26 Today CR 3.1. Will continue to monitor. CHF (systolic) Repeat chest xray: mild venous congestion, no gross focal infiltrates, and a tortous aorta ECHO (09/2016): EF 28%, Tricuspid regurgitation, moderate pulm HTN Pt volume depleted, is being aggressively rehydrated, will monitor for overload Repeat Echo ordered. Will f/u with results. Continue Zestril 5 mg PO Daily Hematuria UA (10/24/17): 1+ blood Monitor, will repeat UA later in course Prophylaxis SCDs Lovenox GI ppx not indicated at this time
--- NOTE | 2017-10-29 18:01 | CARD ---
APPROVED REPORT EXAM: Two-dimensional and M-mode echocardiogram with Doppler and color Doppler. Other Information Quality : GoodRhythm : INDICATION Congestive Heart Failure COPD SYSTOLIC HEART FAILURE 2D DIMENSIONS IVSd1.4 (0.7-1.1cm)LVDd4.4 (3.9-5.9cm) PWd1.2 (0.7-1.1cm)LVDs2.2 (2.5-4.0cm) FS (%) 49.6 %LVEF (%)81.2 (>50%) M-Mode DIMENSIONS Left Atrium (MM)3.25 (2.5-4.0cm)Aortic Root3.82 (2.2-3.7cm) Aortic Cusp Exc.2.15 (1.5-2.0cm) Mitral Valve MV E Mrnpravj82.5cm/sMV A Qcqixqpi97.5cm/sE/A ratio0.6 TDI E/Lateral E'0.0E/Medial E'0.0 Tricuspid Valve TR Peak [id number]/sTR Peak Gr.[id number] LEFT VENTRICLE The Left Ventricle is borderline dilated. There is borderline to mild concentric left ventricular hypertrophy. The left ventricular systolic function is normal. The left ventricular ejection fraction is within the normal range. There is normal LV segmental wall motion. Transmitral Doppler flow pattern is Grade I-abnormal relaxation pattern. Normal left atrial pressre. RIGHT VENTRICLE The right ventricle is normal size. The right ventricular systolic function is normal. ATRIA The left atrium size is normal. The right atrium size is normal. AORTIC VALVE The aortic valve is normal in structure. No aortic regurgitation is present. MITRAL VALVE The mitral valve is normal in structure. Mitral regurgitation is trace. TRICUSPID VALVE The tricuspid valve is normal in structure. PULMONIC VALVE The pulmonary valve is normal in structure. There is mild pulmonic valvular regurgitation. GREAT VESSELS The aortic root is normal in size. The IVC is normal in size and collapses >50% with inspiration. PERICARDIAL EFFUSION There is no pericardial effusion. <Conclusion> The Left Ventricle is borderline to mildly dilated. There is borderline to mild concentric left ventricular hypertrophy. The left ventricular systolic function is normal. Transmitral Doppler flow pattern is Grade I-abnormal relaxation pattern. Normal left atrial pressre. The right ventricular systolic function is normal. No significant valvular abnormality. There is no pericardial effusion.
--- NOTE | 2017-10-29 19:29 | PN ---
DATE: ENDOCRINOLOGY FOLLOWUP NOTE LOCATION: Room 351. SUBJECTIVE: This is a 67-year-old male with recent uncontrolled type 2 insulin-requiring diabetes, now being followed closely for metabolic management. His glycemic levels are still fluctuating with today's glucose values ranging from 243 to 327 mg/dL. It was 401 to 463 at bedtime last night. The latest chemistry showed a BUN of 70, sodium 127, potassium 5.8, chloride 96, CO2 of 21, glucose 277, and creatinine 3.1. So at this time, we will modify once again his basal and bolus insulin regimen and increase the regular insulin to 20 units subcu b.i.d. before meals to start today as ordered. We will increase the basal insulin with NPH given at 40 units every morning before breakfast and 34 units at bedtime to start tonight. We will continue the low-dose correction scale using regular insulin as given. We will follow and advise accordingly. Hawa Lui MD
[2017-10-30] MEDS ORDERED: (Novolin N) Insulin Human Isophane (NPH) 100 u/ml 10 ml vial SC SCH ×2 (07:30→22:00)
[2017-10-30] MEDS: (Novolin R) Insulin Human Regular 100 units/ml vial SC SCH ×6 (07:47→21:37)
[2017-10-30 08:21] LABS: ALBUMIN 3.2 g/dL (3.5-5.0); CALCIUM 8.2 mg/dl (8.6-10.4); MAGNESIUM 1.5 mg/dL (1.6-2.3)
[2017-10-30 08:44] LABS: URINE CLARITY Clear (Clear); URINE COLOR YELLOW (YELLOW)
[2017-10-30 08:45] LABS: URINE BILIRUBIN NEGATIVE (NEGATIVE); URINE GLUCOSE (UA) 100 mg/dL (Normal)
[2017-10-30 08:46] LABS: PH,URINE 5 (5.0-8.0); URINE BLOOD NEGATIVE (NEGATIVE); URINE LEUKOCYTE ESTERASE NEGATIVE Leu/uL (Negative); URINE NITRATE NEGATIVE (NEGATIVE); URINE PROTEIN TRACE mg/dL (NEGATIVE); URINE UROBILINOGEN Normal mg/dL (0.2-1.0)
[2017-10-30 08:47] LABS: SQUAMOUS EPITHIAL 2 /hpf (0-5); URINE BACTERIA RARE (<OCC)
[2017-10-30] MEDS: Enoxaparin 30 mg Syringe SC SCH (10:21)
[2017-10-30] MEDS: Magnesium Sulfate 1 gm in D5W 1 GM/100 ML BAG IVPB SCH ×2 (10:21→11:24)
[2017-10-30 11:56] LABS: BASO % 0.5 % (0.0-2.0); EOS # 0.2 K/uL (0.0-0.7); EOS % 1.7 % (0.0-4.0); HEMOGLOBIN 8.7 g/dL (12.0-18.0); LYMPH # 2.3 K/uL (1.0-4.3); LYMPH % 25.1 % (20.0-40.0); MEAN CELL VOLUME 80.3 fL (80.0-94.0); MEAN CORPUSCULAR HEMOGLOBIN 27.8 pg (27.0-31.0); MEAN CORPUSCULAR HGB CONC 34.6 g/dL (33.0-37.0); MEAN PLATELET VOLUME 10.3 fL (7.2-11.7); MONO # 0.8 K/uL (0.0-0.8); NEUT # 5.9 K/uL (1.8-7.0); NEUT % 63.7 % (50.0-75.0); RBC 3.13 Mil/uL (4.40-5.90); RED CELL DISTRIBUTION WIDTH 13.5 % (11.5-14.5); WHITE BLOOD COUNT 9.2 K/uL (4.8-10.8)
[2017-10-30] MEDS ORDERED: Ferric Sodium Gluconat Complex 62.5 mg/5 ml Vial IVPB SCH (15:15)
[2017-10-30] MEDS ORDERED: Ergocalciferol 50,000 Intl Units Cap PO SCH (16:00)
[2017-10-30] MEDS: Ferric Sodium Gluconat Complex 125 MG in Sodium Chloride 0.9% 100 ML IVPB SCH (16:14)
--- NOTE | 2017-10-30 16:18 | CP.PCM.PN ---
Subjective - Date & Time of Evaluation Date of Evaluation: 10/30/17 Time of Evaluation: 06:12 - Subjective Subjective: Patient seen and examined at bedside. Per nursing no acute events occurred overnight . The patient reports tolerating diet with no issue. The patient reports passing his bowels after being constipated. The patient denies any syncopal episodes. Denies chest pain, shortness of breath, fevers, chills, changes in vision, nausea, vomiting, or any other complaints. Objective - Vital Signs/Intake and Output Vital Signs (last 24 hours): Temp Pulse Resp BP Pulse Ox 97.9 F 80 20 128/73 98 10/30/17 08:03 10/30/17 08:03 10/30/17 08:03 10/30/17 08:03 10/30/17 08:03 Intake and Output: 10/30/17 10/30/17 06:59 18:59 Intake Total 1000 940 Balance 1000 940 - Medications Medications: Current Medications Aspirin (Aspirin Chewable) 81 mg PO DAILY [facility] Last Admin: 10/30/17 10:21 Dose: 81 mg Docusate Sodium (Colace) 100 mg PO BID [facility] Last Admin: 10/30/17 10:21 Dose: 100 mg Enoxaparin Sodium (Lovenox) 30 mg SC DAILY [facility] Last Admin: 10/30/17 10:21 Dose: 30 mg Ergocalciferol (Drisdol 50,000 Intl Units Cap) 1 cap PO Q7D REPLACED BY [facility] Ferric Sodium Gluconate Complex 125 mg/ Sodium Chloride 110 mls @ 110 mls/hr IVPB DAILY REPLACED BY [facility] Stop: 11/07/17 16:01 Insulin Human NPH (Novolin N) 24 unit SC HS REPLACED BY [facility] Insulin Human NPH (Novolin N) 30 unit SC ACB REPLACED BY [facility] Insulin Human Regular (Novolin R) 0 unit SC ACHS [facility] PRN Reason: Protocol Last Admin: 10/30/17 11:25 Dose: Not Given Insulin Human Regular (Novolin R) 24 unit SC ACBD [facility] Last Admin: 10/30/17 08:04 Dose: 24 unit Lisinopril (Zestril) 5 mg PO DAILY [facility] Last Admin: 10/30/17 10:21 Dose: 5 mg Rosuvastatin Calcium (Crestor) 5 mg PO HS [facility] Last Admin: 10/29/17 21:49 Dose: 5 mg Sodium Polystyrene Sulfonate (Kayexalate Susp) 15 gm PO Q48H [facility] - Labs Labs: 10/30/17 11:46 10/30/17 06:59 - Head Exam Head Exam: ATRAUMATIC, NORMAL INSPECTION, NORMOCEPHALIC - Eye Exam Eye Exam: EOMI, Normal appearance, PERRL. absent: Periorbital tenderness Pupil Exam: NORMAL ACCOMODATION, PERRL. absent: Irregular, Unequal - ENT Exam ENT Exam: Mucous Membranes Moist, Normal Exam, Normal Oropharynx - Neck Exam Neck Exam: absent: Lymphadenopathy, Thyromegaly - Respiratory Exam Respiratory Exam: Clear to Ausculation Bilateral, NORMAL BREATHING PATTERN. absent: Chest Wall Tenderness, Prolonged Expiratory Phase, Respiratory Distress - Cardiovascular Exam Cardiovascular Exam: REGULAR RHYTHM, RRR, +S1, +S2. absent: Gallop, Rubs - GI/Abdominal Exam GI & Abdominal Exam: Soft, Normal Bowel Sounds. absent: Rigid, Hyperactive Bowel Sounds - Extremities Exam Extremities Exam: Full ROM, Normal Inspection. absent: Joint Swelling, Pedal Edema, Tenderness - Back Exam Back Exam: NORMAL INSPECTION. absent: CVA tenderness (L), CVA tenderness (R), paraspinal tenderness - Neurological Exam Neurological Exam: Alert, Awake, CN II-XII Intact - Psychiatric Exam Psychiatric exam: Normal Affect, Normal Mood - Skin Skin Exam: Dry, Intact, Normal Color Assessment and Plan - Assessment and Plan (Free Text) Plan: Hyperosmolar hyperglycemic non-ketotic syndrome 10/26: Patient is doing well. No ketones, overnight was on insulin ggt, IVF. He is tolerating PO diet Continue SSI - R, statin, MIRELA-I and ASA. HgbA1c 19.3%. Repeat Glucose was over 500. Endocrinology (Dr. Lui) consulted. Rec's appreciated. Diabetic education ordered. Will discuss with patient before being discharged. Hyponatremia 135 Today. Will continue to monitor with serial CMP's. Tolerating PO diet CKD Chronic (baseline Cr ~3.8) Admission Cr 3.0; GFR 26 Today CR 3.1. Will continue to monitor. Renal Diet Nephrology Consulted. Rec's appreciated. CHF (systolic) Repeat chest xray: mild venous congestion, no gross focal infiltrates, and a tortous aorta ECHO (09/2016): EF 28%, Tricuspid regurgitation, moderate pulm HTN Pt volume depleted, is being aggressively rehydrated, will monitor for overload Repeat Echo shows EF of 81.5%, borderline mild LVH, LV systolic function normal , Grade 1 abnormal relaxation(See full report). Continue Zestril 5 mg PO Daily Hematuria UA (10/24/17): 1+ blood Monitor, will repeat UA later in course Prophylaxis SCDs Lovenox GI ppx not indicated at this time
--- NOTE | 2017-10-30 21:29 | PN ---
ENDOCRINOLOGY FOLLOWUP NOTE LOCATION: Room 351. SUBJECTIVE: This is a 67-year-old male with recent uncontrolled type 2 insulin-requiring diabetes, now being followed closely for metabolic management. His glycemic levels are low normal today as noted with latest chemistries showing BUN of 75, sodium 133, potassium 5.3, chloride 101, CO2 of 20, glucose 89, and creatinine 3.1. Would expect such low normal glycemic profile because of the progressively worsening renal insufficiency as noted. So at this time, we will lower The Novolin NPH down to 30 units every morning and 24 units every bedtime as ordered to start today. We will also continue the Regular Insulin given as 24 units subcu b.i.d. before meals as ordered. We will adjust his dose regimen accordingly to optimize metabolic control. We will follow with you. Hawa Lui MD
--- NOTE | 2017-10-31 03:49 | CON ---
DATE: LOCATION: [facility]. NEPHROLOGY CONSULTATION HISTORY OF PRESENT ILLNESS: The patient is a 66-year-old male with past medical history of hypertension, diabetes, CKD stage IV, presented to ED with excessive thirst and urinary frequency; found to have hyperosmolar hyperglycemic nonketotic state; Nephrology now being consulted for advanced CKD care. The patient apparently has not been checking his sugars lately, although reportedly was continuing to use his home dose of insulin; he had become increasingly thirsty, urinating more frequently with decreased p.o. intake overall; the patient was admitted to ICU and treated with volume repletion and insulin drip; sugars improved dramatically; the patient however continues to have renal insufficiency. On further history, the patient reports taking pain meds occasionally, cannot specify how frequently and cannot specify the name of the pain medication; he had been following with Outpatient Nephrology and has appointment coming up soon; the patient otherwise was being followed by Cardiology as well after admission last year when he was found to have severe systolic heart failure with CKD first diagnosed at that time; the patient has been discharged with LifeVest, however on repeat cardiac studies including a MUGA scan, ejection fraction had improved to 49%, and subsequently, LifeVest was discontinued. PAST MEDICAL HISTORY: As above. SOCIAL HISTORY: Smokes half pack per day for the past 30 years. FAMILY HISTORY: Father with diabetes. Mother with diabetes and heart disease. REVIEW OF SYSTEMS: CONSTITUTIONAL: Denies any fever or night sweats. HEENT: No change in vision. RESPIRATORY: Denies any difficulty breathing. CARDIOVASCULAR: No chest pain or palpitations. GASTROINTESTINAL: No nausea, vomiting, or diarrhea currently. GENITOURINARY: No difficulty urinating. SKIN: Reports pruritus of legs. MUSCULOSKELETAL: Reports arthritis pain in bilateral knees. NEUROLOGIC: Denies any numbness in feet. PHYSICAL EXAMINATION: VITAL SIGNS: This afternoon, blood pressure 141/70, heart rate 71, respirations 20, temperature 97.9, O2 saturation 98% on room air. GENERAL: In no distress, conversing coherently in full sentences. HEENT: Moist mucous membranes, nonicteric. No cervical lymphadenopathy. RESPIRATORY: Lungs are clear to auscultation bilaterally. No rales. No rhonchi. No wheezes. CARDIOVASCULAR: Heart sounds S1 and S2 normal. No murmurs. No gallops. No rubs. GASTROINTESTINAL: Abdomen soft, nontender, nondistended. GENITOURINARY: No bladder distention. EXTREMITIES: No significant leg edema. SKIN: Warm. No cyanosis. NEUROLOGIC: No numbness of feet. PSYCHIATRIC: Normal mood. Normal affect. LABORATORY DATA: This morning, CBC, WBC 9.2, hemoglobin 8.7, hematocrit 25.2, and platelets 174. Chemistry panel, sodium 133, potassium 5.0 (improved from 5.8 yesterday), chloride 101, bicarb 22, BUN 75, creatinine 3.1, glucose 89, calcium 8.2, phosphorus 4.7, magnesium 1.5, albumin 3.2, and 25-hydroxy vitamin D level 21.5. Iron studies, iron 34, TIBC 226, iron saturation 15%, ferritin 225. PTH pending. Urine studies, urine protein 30 mg/dL, creatinine 61 mg/dL, ratio approximately 491 mg/gm protein. UA specific gravity 1.015, trace protein 100 mg/dL, glucose , negative blood. Echo from 2 days ago showing borderline to mildly dilated LV, borderline to mild concentric LVH, LV systolic function normal, grade 1 abnormal relaxation pattern. No significant valvular abnormality. Chest x-ray done 4 days ago, directly visualized, lungs clear. ASSESSMENT AND PLAN: 1. Chronic kidney disease, stage IV. Serum creatinine fluctuating between 2.4 to 3.2 corresponding to EGFR of 20 to 27 milliliters per minute; etiology of relatively nonproteinuric chronic kidney disease (about half gram proteinuria by urine protein creatinine ratio) is likely renovascular disease, but should also rule out reflux nephropathy in which such fluctuations of serum creatinine can be seen; otherwise relatively stable volume status; mild hyperkalemia noted; previous workup for other etiology of chronic kidney disease has been unremarkable; we will obtain bladder ultrasound with post void residual volume measurement. Starting Kayexalate standing dose 15 g every other day; counseled on need for low potassium diet; counseled on need for close nephrology outpatient followup. 2. Hypertension of chronic kidney disease. Blood pressure has been relatively well controlled with patient only on low dose lisinopril 5 mg daily; continue the same for now as the patient has history of congestive heart failure with systolic failure. 3. Anemia of chronic kidney disease. The patient with hemoglobin with the low goal of 10 to 11 gm; possible iron deficiency with some low iron saturation despite normal ferritin; will give IV iron dosing daily while the patient remains admitted; can discharge on p.o. ferrous sulphate 325 mg b.i.d. 4. Chronic kidney disease mineral and bone disorder. The patient previously with PTH level of 298 one year ago; vitamin D 25-hydroxy level slightly low at 21.5; awaiting repeat PTH, will likely need calcitriol; for now, we will start ergocalciferol 50,000 units weekly. 5. Congestive heart failure. The patient had severe systolic dysfunction seen approximately 1 year ago, but has improved significantly, and the patient has been asymptomatic; echo does report mildly dilated left ventricular function, although ejection fraction is normal; should continue with low dose lisinopril; unclear why the patient is not on beta-nikko; can followup with Cardiology as outpatient regarding this. Thank you for this referral. We will follow the patient while he remains admitted. Patrick Warner MD
[2017-10-31] MEDS ORDERED: (Novolin N) Insulin Human Isophane (NPH) 100 u/ml 10 ml vial SC SCH ×2 (07:30→22:00)
[2017-10-31] MEDS: (Novolin R) Insulin Human Regular 100 units/ml vial SC SCH ×3 (08:13→12:58)
[2017-10-31 08:49] VITALS: BP 148/82; PULSE 82; TEMP 98.4; O2SAT 94
[2017-10-31] MEDS ORDERED: Sod Polystyrene Sulf 15 gm/60 ml Susp PO SCH (10:00)
[2017-10-31] MEDS ORDERED: Ergocalciferol 50,000 Intl Units Cap PO SCH (10:00)
[2017-10-31] MEDS: Enoxaparin 30 mg Syringe SC SCH (10:53)
[2017-10-31] MEDS: Ferric Sodium Gluconat Complex 125 MG in Sodium Chloride 0.9% 100 ML IVPB SCH (10:53)
--- NOTE | 2017-10-31 12:32 | CP.PCM.DIS ---
Provider - Provider Date of Admission: 10/24/17 14:14 Attending physician: Wilber Oconnor DO Primary care physician: none Consults: Dr. Lui - endocrine Dr. Warner - nephrology Time Spent in preparation of Discharge (in minutes): 35 Diagnosis - Discharge Diagnosis (1) CHF (congestive heart failure) Status: Acute (2) Chronic renal insufficiency Status: Acute (3) Hyperglycemia Status: Acute (4) Hyperosmolality due to uncontrolled type 1 diabetes mellitus Status: Acute Hospital Course - Lab Results Lab Results: Micro Results 10/26/17 16:00 Naris MRSA Culture - Final MRSA NOT DETECTED 10/24/17 16:46 Naris MRSA Culture (Admit) - Final MRSA NOT DETECTED Most Recent Lab Values WBC 9.2 K/uL (4.8-10.8) 10/30/17 11:46 RBC 3.13 Mil/uL (4.40-5.90) L 10/30/17 11:46 Hgb 8.7 g/dL (12.0-18.0) L 10/30/17 11:46 Hct 25.2 % (35.0-51.0) L 10/30/17 11:46 MCV 80.3 fL (80.0-94.0) 10/30/17 11:46 MCH 27.8 pg (27.0-31.0) 10/30/17 11:46 MCHC 34.6 g/dL (33.0-37.0) 10/30/17 11:46 RDW 13.5 % (11.5-14.5) 10/30/17 11:46 Plt Count 174 K/uL (130-400) 10/30/17 11:46 MPV 10.3 fL (7.2-11.7) 10/30/17 11:46 Neut % (Auto) 63.7 % (50.0-75.0) 10/30/17 11:46 Lymph % (Auto) 25.1 % (20.0-40.0) 10/30/17 11:46 Callaway % (Auto) 9.0 % (0.0-10.0) 10/30/17 11:46 Eos % (Auto) 1.7 % (0.0-4.0) 10/30/17 11:46 Baso % (Auto) 0.5 % (0.0-2.0) 10/30/17 11:46 Neut # (Auto) 5.9 K/uL (1.8-7.0) 10/30/17 11:46 Lymph # (Auto) 2.3 K/uL (1.0-4.3) 10/30/17 11:46 Callaway # (Auto) 0.8 K/uL (0.0-0.8) 10/30/17 11:46 Eos # (Auto) 0.2 K/uL (0.0-0.7) 10/30/17 11:46 Baso # (Auto) 0.0 K/uL (0.0-0.2) 10/30/17 11:46 pO2 41 mm/Hg (30-55) 10/25/17 05:20 VBG pH 7.30 (7.32-7.43) L 10/25/17 05:20 VBG pCO2 41 mmHg (40-60) 10/25/17 05:20 VBG HCO3 19.6 mmol/L 10/25/17 05:20 VBG Total CO2 21.5 mmol/L (22-28) L 10/25/17 05:20 VBG O2 Sat (Calc) 83.3 % (40-65) H 10/25/17 05:20 VBG Base Excess -5.9 mmol/L (0.0-2.0) L 10/25/17 05:20 VBG Potassium 4.1 mmol/L (3.6-5.2) 10/25/17 05:20 Sodium 135.0 mmol/l (132-148) 10/25/17 05:20 Chloride 109.0 mmol/L (98-107) H 10/25/17 05:20 Glucose 244 mg/dl (75-110) H 10/25/17 05:20 Lactate 0.6 mmol/L (0.7-2.1) L 10/25/17 05:20 Sodium 133 mmol/L (132-148) 10/30/17 06:59 Potassium 5.0 mmol/L (3.6-5.2) 10/30/17 06:59 Chloride 101 mmol/L (98-107) 10/30/17 06:59 Carbon Dioxide 22 mmol/L (22-30) 10/30/17 06:59 Anion Gap 16 (10-20) 10/30/17 06:59 BUN 75 mg/dL (9-20) H 10/30/17 06:59 Creatinine 3.1 mg/dL (0.8-1.5) H 10/30/17 06:59 Est GFR ( Amer) 25 10/30/17 06:59 Est GFR (Non-Af Amer) 20 10/30/17 06:59 POC Glucose (mg/dL) 318 mg/dL (65-110) H 10/31/17 11:31 Random Glucose 89 mg/dL (75-110) 10/30/17 06:59 Hemoglobin A1c 19.3 % (4.2-6.5) H D 10/24/17 15:37 Serum Osmolality 312 mosm/kg (272-300) H 10/24/17 15:37 Calcium 8.2 mg/dl (8.6-10.4) L 10/30/17 06:59 Phosphorus 4.7 mg/dL (2.5-4.5) H 10/30/17 06:59 Magnesium 1.5 mg/dL (1.6-2.3) L 10/30/17 06:59 Iron 34 ug/dL (49-181) L 10/30/17 06:59 TIBC 226 ug/dL (250-450) L 10/30/17 06:59 % Saturation 15 (20-55) L 10/30/17 06:59 Ferritin 225.0 ng/mL 10/30/17 06:59 Total Bilirubin 0.3 mg/dL (0.2-1.3) 10/30/17 06:59 AST 19 U/L (17-59) 10/30/17 06:59 ALT 19 U/L (21-72) L 10/30/17 06:59 Alkaline Phosphatase 86 U/L (38-126) 10/30/17 06:59 Troponin I < 0.0120 ng/mL (0.00-0.120) 10/24/17 12:43 NT-Pro-B Natriuret Pep 384 pg/mL (0-900) 10/24/17 15:37 Total Protein 6.5 g/dL (6.3-8.3) 10/30/17 06:59 Albumin 3.2 g/dL (3.5-5.0) L 10/30/17 06:59 Globulin 3.3 gm/dL (2.2-3.9) 10/30/17 06:59 Albumin/Globulin Ratio 1.0 (1.0-2.1) 10/30/17 06:59 Triglycerides 171 mg/dL (0-149) H D 10/29/17 06:31 Cholesterol 118 mg/dL (0-199) 10/29/17 06:31 LDL Cholesterol Direct 62 mg/dL (0-129) 10/29/17 06:31 HDL Cholesterol 17 mg/dL (30-70) L 10/29/17 06:31 Lipase 250 U/L (23-300) 10/29/17 06:31 25-OH Vitamin D Total 21.5 NG/ML (30.0-100.0) L 10/30/17 06:59 Procalcitonin 0.11 NG/ML (0.19-0.49) L 10/24/17 17:37 TSH 3rd Generation 1.80 mIU/L (0.46-4.68) 10/29/17 06:31 Venous Blood Potassium 4.1 mmol/L (3.6-5.2) 10/25/17 05:20 Urine Color Yellow (YELLOW) 10/30/17 07:31 Urine Clarity Clear (Clear) 10/30/17 07:31 Urine pH 5 (5.0-8.0) 10/30/17 07:31 Ur Specific Hammond 1.015 (1.003-1.030) 10/30/17 07:31 Urine Protein Trace mg/dL (NEGATIVE) 10/30/17 07:31 Urine Glucose (UA) 100 mg/dL (Normal) 10/30/17 07:31 Urine Ketones Negative mg/dL (NEGATIVE) 10/30/17 07:31 Urine Blood Negative (NEGATIVE) 10/30/17 07:31 Urine Nitrate Negative (NEGATIVE) 10/30/17 07:31 Urine Bilirubin Negative (NEGATIVE) 10/30/17 07:31 Urine Urobilinogen Normal mg/dL (0.2-1.0) 10/30/17 07:31 Ur Leukocyte Esterase Negative Naima/uL (Negative) 10/30/17 07:31 Urine RBC (Auto) 4 /hpf (0-3) H 10/24/17 13:01 Urine WBC (Auto) 2 /hpf (0-5) 10/30/17 07:31 Ur Squamous Epith Cells 2 /hpf (0-5) 10/30/17 07:31 Urine Bacteria Rare (<OCC) 10/30/17 07:31 Urine Osmolality 338 mosm/kg (300-1000) 10/24/17 16:40 Ur Random Creatinine 61.1 mg/dL 10/30/17 07:31 U Random Total Protein 30.0 mg/dL (0.0-12.0) H 10/30/17 07:31 Ur Random Sodium 36 mmol/L 10/29/17 14:42 Urine Microalbumin 86.5 mg/L (0.0-16.6) H 10/30/17 07:31 Serum Ketones Negative (NEGATIVE) 10/25/17 06:24 - Hospital Course Hospital Course: On admission: Patient is a 66 year old male, with PMHx of DM, HTN, renal insufficiency, and arthritis, who presents to [facility] for excessive thirst, and decreased appetite. Patient reports for the last few days he has been without testing strips for his glucometer and he has not been checking his sugars. He states he has become excessively thirsty, urinating more frequently, and noticed a decreased appetite. He states he had these symptoms before when his sugars have been high and knew it was time to come to the ED. He states he is still taking his insulin (20 units of Novolin in AM and PM) despite being unable to check his sugars. He denies chest pain, palpitations , SOB, abdominal pain, N/V. During hospital stay: Patient was sent to the ICU ofr Hyperosmolar hyperglcemic non ketoic syndrome. He was given insulin an adequate fluid resuscitation. Patient's HbA1c was 19.3. Endocrine DR. Lui was consulted and NPH, and regular insulin was administered and adjusted based on the patient's sugar levels. Patient was also given a statin and MIRELA inhibitor. Patient also with CKD. Nephrology was consulted, Dr. Warner. Echo was done on admission and showed a low ef of 28%. Patient was diuresed. Repeat echo showed 81.5 % with borderline LVH, and grade 1 abnormal relaxation pattern. Patient is stable for discharge home. Patient is to follow up in the [facility] within 1-2 week of discharge for post hospital follow up. He is to call and make an appointment. He will need referrals for endocrinology and nephrology on follow up. He is to take the following medications as prescribed: 1. Aspirin 81 mg one by mouth daily 2. Lisinopril 5mg one by mouth daily 3. Simvastatin 10mg one by mouth daily 4. Regular Insulin: patient to use 18 units in the morning with breakfast and 18 U at night before bedtime 5. NPH Insulin: patient is to use 24 units in the morning with breakfast and 16 U at night before bedtime 6. Kayexalate 15mg one time every other day by mouth 7. Ergocalciferol 50346 U one cap by mouth once a week for 3 months Patient is to return to the ER if symptoms return. He is to check his sugars 4 times a day and bring a log of his sugars to his follow up visit. All instructions explained to the patient and he agrees. *Please not this is just a summary of the hospital stay. Please refer to the EMR for full admission details. Discharge Exam - Head Exam Head Exam: ATRAUMATIC, NORMAL INSPECTION, NORMOCEPHALIC - Eye Exam Eye Exam: EOMI, PERRL Pupil Exam: NORMAL ACCOMODATION - Respiratory Exam Respiratory Exam: NORMAL BREATHING PATTERN - Cardiovascular Exam Cardiovascular Exam: REGULAR RHYTHM, +S1, +S2 - GI/Abdominal Exam GI & Abdominal Exam: Normal Bowel Sounds, Soft. absent: Distended, Firm, Guarding, Tenderness - Extremities Exam Extremities exam: normal inspection - Back Exam Back exam: NORMAL INSPECTION - Neurological Exam Neurological exam: Alert, CN II-XII Intact, Normal Gait, Oriented x3, Reflexes Normal - Psychiatric Exam Psychiatric exam: Normal Affect, Normal Mood - Skin Skin Exam: Dry, Intact Discharge Plan - Discharge Medications Prescriptions: Aspirin [Aspirin Chewable] 81 mg PO DAILY #30 chew Ergocalciferol [Drisdol 50,000 Intl Units Cap] 1 cap PO Q7D #4 cap Insulin Human Isophane (NPH) [Novolin N] 24 unit SC ACB 30 Days unit Insulin Human Isophane (NPH) [Novolin N] 16 unit SC HS 30 Days unit Insulin Human Regular [Novolin R] 18 unit SC ACBD 30 Days unit Lisinopril [Zestril] 5 mg PO DAILY #30 tab Simvastatin 10 mg PO HS #30 tablet Sodium Polystyrene Sulfonate [kayeXALATE Susp] 15 gm PO Q48H 15 Days bottle - Follow Up Plan Condition: FAIR Disposition: HOME/ ROUTINE Instructions: Lisinopril (By mouth), Insulin Human Isophane (NPH) (By injection ), Heart Failure (DC), Diabetic Hyperglycemia (DC) Additional Instructions: Patient is stable for discharge home. Patient is to follow up in the [facility] within 1-2 week of discharge for post hospital follow up. He is to call and make an appointment. He will need referrals for endocrinology and nephrology on follow up. He is to take the following medications as prescribed: 1. Aspirin 81 mg one by mouth daily 2. Lisinopril 5mg one by mouth daily 3. Simvastatin 10mg one by mouth daily 4. Regular Insulin: patient to use 18 units in the morning with breakfast and 18 U at night before bedtime 5. NPH Insulin: patient is to use 24 units in the morning with breakfast and 16 U at night before bedtime 6. Kayexalate 15mg one time every other day by mouth 7. Ergocalciferol 66051 U one cap by mouth once a week for 3 months Patient is to return to the ER if symptoms return. He is to check his sugars 4 times a day and bring a log of his sugars to his follow up visit. All instructions explained to the patient and he agrees. Referrals: [facility] [Outside] Hawa Lui MD [Medical Doctor] - Mónica Stewart MD [Staff Provider] -
--- NOTE | 2017-10-31 12:47 | PN ---
DATE: ENDOCRINOLOGY FOLLOWUP NOTE LOCATION: Room 351. SUBJECTIVE: This is 67-year-old male with recent uncontrolled type 2 insulin requiring diabetes, now being followed closely for metabolic management. His glycemic levels are fluctuating, but improved and the latest glucose levels have ranged from 86 to 105 and 179 and 380 mg/dL. So at this time, we will modify once again his basal and bolus insulin regimen and lower the NPH to 16 units subq at bedtime daily to start tonight. We will also lower the mealtime insulin Humulin to Novolin regular insulin, given as 18 units before breakfast and dinner to start today. Moreover, we will also lower the morning NPH from 30 to 24 units a.c. breakfast daily to start tomorrow morning as ordered. We will obtain serum chemistry and supplement accordingly as needed. We will follow. Hawa Lui MD
--- NOTE | 2017-10-31 15:22 | US ---
PROCEDURE: Ultrasound of the Bladder HISTORY: Postvoid bladder scan COMPARISON: None available. TECHNIQUE: Sonographic evaluation of the bladder was performed. FINDINGS: Unremarkable without wall thickening or intraluminal debris. No calculus or gross mass lesion. No free fluid in pelvis. Prevoid Volume: 319 cc. Post void residual: 0 cc. Prostate gland volume = 45 ml IMPRESSION: No significant postvoid residual. .
[2017-10-31] MEDS ORDERED: (Novolin R) Insulin Human Regular 100 units/ml vial SC SCH (16:30)
[2017-11-01] MEDS ORDERED: (Novolin N) Insulin Human Isophane (NPH) 100 u/ml 10 ml vial SC SCH (07:30)
== END 2017-10-31 16:42 | disposition home or self-care (01) | DRG 638 ==
LOC: C.ER 11:28 → C.9E 14:14 → C.9I 16:29 → C.3T 10-26 16:49
PROVIDERS: ADMIT Hospitalist; ATTEND Hospitalist
DX: E11.00 Type 2 diabetes mellitus with hyperosmolarity without nonketotic hyperglycemic-hyperosmolar coma (NKHHC) (principal); E87.0 Hyperosmolality and hypernatremia; I27.20 Pulmonary hypertension, unspecified; N18.4 Chronic kidney disease, stage 4 (severe); I13.0 Hypertensive heart and chronic kidney disease with heart failure and stage 1 through stage 4 chronic kidney disease, or unspecified chronic kidney disease; I50.22 Chronic systolic (congestive) heart failure; E87.5 Hyperkalemia; E11.21 Type 2 diabetes mellitus with diabetic nephropathy; I25.10 Atherosclerotic heart disease of native coronary artery without angina pectoris; K59.00 Constipation, unspecified; Z79.4 Long term (current) use of insulin; F17.210 Nicotine dependence, cigarettes, uncomplicated; D63.1 Anemia in chronic kidney disease; Z68.23 Body mass index [BMI] 23.0-23.9, adult; Z95.0 Presence of cardiac pacemaker